=== PATIENT | female | born 1965 | race African-American/Black ===

== ENCOUNTER 2023-12-06 14:08 | Emergency (ER) | payer MEDICAID, OTHER ==
[~2023-12-06] VITALS: Ht 175.3 cm; Wt 121.9 kg
[2023-12-06 18:00] VITALS: BP 113/65; PULSE 64; RESP 17; O2SAT 99
[2023-12-06] MEDS ORDERED: CEPH250C PO (18:03)
[2023-12-06] MEDS ORDERED: ACET500T58 PO (18:03)
[2023-12-06 18:09] VITALS: TEMP 97.7
[2023-12-06] MEDS: ACETAMINOPHEN 500 MG TAB PO ONE (18:09)
[2023-12-06] MEDS: TETANUS-DIPTH-ACEL PERTUSSIS 0.5ML SYR Tdap IM ONE (18:10)
== END 2023-12-06 18:20 | disposition home or self-care (01) ==
LOC: ER 14:08 → EDBD 14:08 → ER 18:19
DX: S51.832A Puncture wound without foreign body of left forearm, initial encounter (principal); I48.91 Unspecified atrial fibrillation; W23.0XXA Caught, crushed, jammed, or pinched between moving objects, initial encounter; Y93.89 Activity, other specified; Y92.89 Other specified places as the place of occurrence of the external cause; Y99.8 Other external cause status
CPT/HCPCS: 90471; 90715

== ENCOUNTER 2024-04-17 09:26 | Emergency (ER) | payer MEDICAID ==
[~2024-04-17] VITALS: Ht 175.3 cm; Wt 114.0 kg
[~2024-04-17 09:26] MED LIST: ACET500T58 PO; CEPH250C PO
[2024-04-17 09:52] VITALS: BP 113/66; PULSE 69; RESP 16; TEMP 97.8; O2SAT 100
[2024-04-17] MEDS: SUMAtriptan SUCCINATE 6 MG/0.5 ML VL SC ONE (10:30)
[2024-04-17] MEDS ORDERED: SUMA50TA2 PO (11:07)
[2024-04-17] MEDS ORDERED: ZOFR4T PO (11:07)
== END 2024-04-17 11:14 | disposition home or self-care (01) ==
LOC: ER 09:29
DX: G43.009 Migraine without aura, not intractable, without status migrainosus (principal); I48.91 Unspecified atrial fibrillation
CPT/HCPCS: 70450; 96372; 99285; J3030

== ENCOUNTER 2024-10-04 23:33 | Inpatient (IN) | payer MEDICAID ==
[~2024-10-04] VITALS: Ht 175.3 cm; Wt 119.4 kg
[~2024-10-04 23:33] MED LIST changes: +SUMA50TA2 PO; +ZOFR4T PO
--- NOTE | 2024-10-04 23:55 | ED.PDOC ---
History of Present Illness Time Seen by MD: 23:35 Primary Care Provider: EMRE Allergies: Coded Allergies: Iodine (Verified Allergy, Unknown, 04/17/24) Sulfa Antibiotics (Verified Allergy, Unknown, 04/17/24) Home Meds Active Scripts Ondansetron Odt 4MG Tab (ZOFRAN PO) 4 Mg Tb, 4 MG PO BID, #14 TAB ODT TAB-DISSOLVE IN MOUTH, THEN SWALLOW Prov:ALEX STEELE 04/17/24 Sumatriptan Succinate (Imitrex) 50 Mg Tab, 1 TAB PO BID, #20 TAB Prov:ALEX STEELE PA 04/17/24 Acetaminophen (Acetaminophen) 500 Mg Tab, 500 MG PO Q4HP PRN, #20 TAB Prov:ADRIANA MARES PAC 12/06/23 Cephalexin (KEFLEX CAPSULE) 250 Mg Cp, 1 CAP PO QID for 5 Days, #20 CAP Prov:ADRIANA MARES PAC 12/06/23 Past Medical History PAST MEDICAL HISTORY: AFIB Surgical History: Denies all surgeries GROUP FITNESS MANAGER History: No Pertinent GROUP FITNESS MANAGER History Family History Family History: Reviewed,noncontributory to illness, No family hx of Cancer, No family hx of DM, No family hx of Heart libia, No family hx of HTN, No family hx ofKidney libia, No family hx of Liver libia, No family hx of Lung ilbia, No family hx of Stroke Social History Smoker: Non-Smoker Alcohol: Denies ETOH Use Drugs: Denies Drug Use Lives In: Home X-Ray, Labs, Meds, VS Vital Signs Date Time Temp Pulse Resp B/P (MAP) Pulse Ox O2 Delivery O2 Flow Rate FiO2 10/05/24 00:43 69 10/05/24 00:07 98.4 74 16 115/67 (83) 98 10/05/24 00:03 71 10 99 Room Air* 0 21 10/05/24 00:03 71 10 109/57 (74) 99 10/05/24 00:00 82 10/04/24 23:36 77 Lab Test 10/05/24 01:12 10/05/24 00:17 Range/Units Troponin I High Sensitivity Pending < 3 L </=34 ng/L White Blood Count 8.7 4.4-10.8 10^3/uL Red Blood Count 4.16 4.0-5.20 10^6/uL Hemoglobin 12.8 12.2-16.2 g/dL Hematocrit 39.5 36.0-46.0 % Mean Corpuscular Volume 95.0 80.0-100.0 fL Mean Corpuscular Hemoglobin 30.9 28.0-32.0 pg Mean Corpuscular Hemoglobin Concent 32.5 32.0-36.0 g/dL Red Cell Distribution Width 13.7 11.8-14.3 % Platelet Count 182 140-450 10^3/uL Mean Platelet Volume 9.3 6.9-10.8 fL Neutrophils (%) (Auto) 44.5 37.0-80.0 % Lymphocytes (%) (Auto) 45.9 10.0-50.0 % Monocytes (%) (Auto) 6.6 0.0-12.0 % Eosinophils (%) (Auto) 2.6 0.0-7.0 % Basophils (%) (Auto) 0.4 0.0-2.0 % Neutrophils # (Auto) 3.9 1.6-8.6 10 ^3/uL Lymphocytes # (Auto) 4.0 0.4-5.4 10 ^3/uL Monocytes # (Auto) 0.6 0-1.3 10 ^3/uL Eosinophils # (Auto) 0.2 0-0.8 10 ^3/uL Basophils # (Auto) 0 0-0.2 10 ^3/uL Nucleated Red Blood Cells 0.3 % Sodium Level 138 136-145 mmol/L Potassium Level 4.2 3.5-5.1 mmol/L Chloride Level 106 98-107 mmol/L Carbon Dioxide Level 25 20-31 mmol/L Anion Gap 7 5-15 Blood Urea Nitrogen 6 L 9-23 mg/dL Creatinine 1.11 H 0.550-1.02 mg/dL Glomerular Filtration Rate Calc 57 >90 mL/min BUN/Creatinine Ratio 5.4 L 10.0-20.0 Serum Glucose 85 74-106 mg/dL Calcium Level 9.8 8.7-10.4 mg/dL Magnesium Level 2.0 1.6-2.6 mg/dL Total Bilirubin 0.5 0.2-1.0 mg/dL Aspartate Amino Transferase (AST) 21 13-40 U/L Alanine Aminotransferase (ALT) 16 7-40 U/L Alkaline Phosphatase 74 46-116 U/L B-Type Natriuretic Peptide 12.92 0-100 pg/mL Total Protein 7.3 5.7-8.2 g/dL Albumin 3.9 3.2-4.8 g/dL BRAD BARTHOLOMEW MD Oct 04, 2024 23:55
[2024-10-05] VITALS (7 sets, daily range): BP systolic 95–105; BP diastolic 51–60; PULSE 61–71; RESP 10–20; TEMP 97.5–98.1; O2SAT 98–100
--- NOTE | 2024-10-05 00:29 | DVH ---
CHEST RADIOGRAPH Indication: cp Technique: Single frontal view of the chest was obtained Comparison: None FINDINGS: Lines and Tubes: None Lungs: Clear Pleura: No effusion. No pneumothorax. Cardiomediastinal contours: Unremarkable Bones: Unremarkable IMPRESSION: 1. Clear lungs.
--- NOTE | 2024-10-05 00:38 | DVH ---
CT HEAD WITHOUT CONTRAST INDICATION: Severe headache, change in quality, on Xarelto EXAM DATE: 10/05/2024 12:02 AM COMPARISON: CT HEAD WITHOUT CONTRAST on DOS: 04/17/24 RADIATION DOSE: CTDIvol: 57 mGy, DLP: 1018 mGy*cm PROCEDURE: CT scans of the head were obtained from the vertex to the skull base. Sagittal and coronal reconstructions were provided. All CT scans at this medical facility are performed using dose modulation techniques as appropriate t o a performed exam including the following: Automated exposure control was utilized; adjustment of th e MA and/or KV according to patient size; and use of iterative reconstruction technique. FINDINGS: There is sulcal and ventricular prominence. The brainshows normal morphology and fabian-whi te matter differentiation, without intracranial hemorrhage, extra-axial fluid collection, mass effect or acute large vessel infarct. The ventricles are normal in size. The basal cisterns are patent. The skull and visible facial bones are intact. The paranasal sinuses, mastoid air cells and middle ear c avities are well-aerated. The soft tissues of the scalp are unremarkable. IMPRESSION: No acute intracranial abnormality.
[2024-10-05 00:50] LABS: Basophils # (auto) 0 10 ^3/uL (0-0.2); Basophils % (auto) 0.4 % (0.0-2.0); Eosinophils # (auto) 0.2 10 ^3/uL (0-0.8); Eosinophils % (auto) 2.6 % (0.0-7.0); Hematocrit 39.5 % (36.0-46.0); Hemoglobin 12.8 g/dL (12.2-16.2); Lymphocytes % (auto) 45.9 % (10.0-50.0); Mean Corpuscular Hemoglobin 30.9 pg (28.0-32.0); Mean Corpuscular Hgb Conc. 32.5 g/dL (32.0-36.0); Monocytes # (auto) 0.6 10 ^3/uL (0-1.3); Monocytes % (auto) 6.6 % (0.0-12.0); Neutrophils # (auto) 3.9 10 ^3/uL (1.6-8.6); Neutrophils % (auto) 44.5 % (37.0-80.0); Nucleated Red Blood Cells % 0.3 %; Platelet Count (auto) 182 10^3/uL (140-450); Red Blood Cells 4.16 10^6/uL (4.0-5.20); Red Cell Distribution Width 13.7 % (11.8-14.3); White Blood Cell 8.7 10^3/uL (4.4-10.8)
[2024-10-05] MEDS: ACETAMINOPHEN 500 MG TAB or CAP PO ONE (01:13)
[2024-10-05] MEDS: ONDANSETRON HCL 4 MG/2 ML VIAL ONE (01:18)
[2024-10-05 01:32] LABS: Alanine Aminotransferase 16 U/L (7-40); Albumin 3.9 g/dL (3.2-4.8); Alkaline Phosphatase 74 U/L (46-116); Anion Gap 7 (5-15); Aspartate Aminotransferase 21 U/L (13-40); BUN/Creatinine Ratio 5.4 (10.0-20.0); Calcium 9.8 mg/dL (8.7-10.4); Carbon Dioxide 25 mmol/L (20-31); Chloride 106 mmol/L (98-107); Glucose 85 mg/dL (74-106); Potassium 4.2 mmol/L (3.5-5.1); Sodium 138 mmol/L (136-145)
[2024-10-05 01:33] LABS: Bilirubin, Total 0.5 mg/dL (0.2-1.0); Blood Urea Nitrogen 6 mg/dL (9-23); Total Protein 7.3 g/dL (5.7-8.2)
--- NOTE | 2024-10-05 01:49 | ED.PDOC ---
History of Present Illness HPI Comments 59-year-old female with past medical history of CHF, hypertension, prediabetes, migraines, DVT, lupus presents to the emergency department with severe, 9/10 chest pain unless side of her chest that started approximately 6 hours prior to arrival while she was sitting and watching TV. Patient states the pain does not radiate, feels like her heart is popping out of her chest, burning, stabbing. She denies any similar symptoms in the past. She is allergic to aspirin. She does take Xarelto for DVT. She states she has been compliant with her medications, has not missed any doses. She reports associated shortness of breath, nausea, headache, palpitations. No cough, vomiting, diaphoresis or syncope No recent illness or viral-like symptoms. She states she was feeling well prior to 6 hours ago. She does have a headache which is occipital and not typical for her usual headaches. No head injury. Per EMS patient's blood sugar was 83 on arrival, she was in sinus rhythm. Chief Complaint: Chest Pain Time Seen by MD: 23:35 Primary Care Provider: EMRE Allergies: Coded Allergies: Iodine (Verified Allergy, Unknown, 04/17/24) Sulfa Antibiotics (Verified Allergy, Unknown, 04/17/24) Home Meds Active Scripts Ondansetron Odt 4MG Tab (ZOFRAN PO) 4 Mg Tb, 4 MG PO BID, #14 TAB ODT TAB-DISSOLVE IN MOUTH, THEN SWALLOW Prov:ALEX STEELE 04/17/24 Sumatriptan Succinate (Imitrex) 50 Mg Tab, 1 TAB PO BID, #20 TAB Prov:ALEX STEELE 04/17/24 Acetaminophen (Acetaminophen) 500 Mg Tab, 500 MG PO Q4HP PRN, #20 TAB Prov:ADRIANA MARES PAC 12/06/23 Cephalexin (KEFLEX CAPSULE) 250 Mg Cp, 1 CAP PO QID for 5 Days, #20 CAP Prov:ADRIANA MARES PAC 12/06/23 Mode of Arrival: EMS Review of Systems: As stated in HPI Vital Signs Vital Signs Date Time Temp Pulse Resp B/P (MAP) Pulse Ox O2 Delivery O2 Flow Rate FiO2 10/05/24 03:15 72 18 117/62 10/05/24 00:07 98.4 98 10/05/24 00:03 Room Air* 0 21 Physical Exam Blood pressure LUE: 117/62 RUE: 112/59 General: Awake, alert and oriented. No acute distress. Skin: Skin in warm, dry and intact. Appropriate color for ethnicity. Nailbeds with no cyanosis. HEENT: The head is normocephalic and atraumatic. Conjunctivae are clear without exudates or hemorrhage. Sclera is non-icteric. EOM are intact. No signs of nystagmus. Eyelids are normal in appearance without swelling or lesions. Oral mucosa is pink and moist Neck: The neck is supple with normal range of motion. No JVD. Cardiac: Heart rate and rhythm are normal. No murmurs, gallops, or rubs are auscultated. Bilateral radial pulses strong and equal. Left chest wall tender to palpation. Respiratory: No signs of respiratory distress. Lung sounds are clear in all lobes bilaterally without rales, ronchi, or wheezes. Abdominal: Abdomen is soft, non-tender without distention. Bowel sounds are present and normoactive in all four quadrants. Extremities: Upper and lower extremities are atraumatic in appearance without deformity or edema. Neurological: The patient is awake, alert and oriented to person, place, and time with normal speech. Speech is clear. There is no facial asymmetry. Psychiatric: Appropriate mood and affect. Good judgement and insight. No visual or auditory hallucinations. Past Medical History PAST MEDICAL HISTORY: AFIB Surgical History: Denies all surgeries HAND ROUNDER History: No Pertinent HAND ROUNDER History Family History Family History: Reviewed,noncontributory to illness, No family hx of Cancer, No family hx of DM, No family hx of Heart libia, No family hx of HTN, No family hx ofKidney libia, No family hx of Liver libia, No family hx of Lung libia, No family hx of Stroke Social History Smoker: Non-Smoker Alcohol: Denies ETOH Use Drugs: Denies Drug Use Lives In: Home Was a procedure done? Was a procedure done?: No EKG EKG : Comments Rate 77, sinus rhythm, QTC 462, QRS axis 95. No STEMI. Differential Dx Considerations may include: Differential diagnoses considered include acute ischemic coronary syndrome, aortic dissection, cardiac tamponade, mediastinitis, pulmonary embolus, pneumoth orax, tension pneumothorax, esophageal rupture, coronary artery vasospasm, myocarditis, pericarditis, pneumonia, pulmonary edema, esophageal tear, pancreatitis, aortic stenosis, dilated cardiomyopathy, hypertrophic cardiomyopathy, mitral valve prolapse, malignancy, pleuritis, pneumomediastinum, primary pulmonary hypertension, cholecystitis, esophageal spasm, esophagus, gastritis, GERD, peptic ulcer disease, costochondritis, fibromyalgia, rib fracture, herpes zoster, radicular syndromes, thoracic outlet syndrome, somatization. X-Ray, Labs, Meds, VS Vital Signs Date Time Temp Pulse Resp B/P (MAP) Pulse Ox O2 Delivery O2 Flow Rate FiO2 10/05/24 03:15 72 18 117/62 10/05/24 02:29 64 10/05/24 00:43 69 10/05/24 00:07 98.4 74 16 115/67 (83) 98 10/05/24 00:03 71 10 99 Room Air* 0 21 10/05/24 00:03 71 10 109/57 (74) 99 10/05/24 00:00 82 10/04/24 23:36 77 Lab Test 10/05/24 01:12 10/05/24 00:17 Range/Units Troponin I High Sensitivity < 3 L < 3 L </=34 ng/L White Blood Count 8.7 4.4-10.8 10^3/uL Red Blood Count 4.16 4.0-5.20 10^6/uL Hemoglobin 12.8 12.2-16.2 g/dL Hematocrit 39.5 36.0-46.0 % Mean Corpuscular Volume 95.0 80.0-100.0 fL Mean Corpuscular Hemoglobin 30.9 28.0-32.0 pg Mean Corpuscular Hemoglobin Concent 32.5 32.0-36.0 g/dL Red Cell Distribution Width 13.7 11.8-14.3 % Platelet Count 182 140-450 10^3/uL Mean Platelet Volume 9.3 6.9-10.8 fL Neutrophils (%) (Auto) 44.5 37.0-80.0 % Lymphocytes (%) (Auto) 45.9 10.0-50.0 % Monocytes (%) (Auto) 6.6 0.0-12.0 % Eosinophils (%) (Auto) 2.6 0.0-7.0 % Basophils (%) (Auto) 0.4 0.0-2.0 % Neutrophils # (Auto) 3.9 1.6-8.6 10 ^3/uL Lymphocytes # (Auto) 4.0 0.4-5.4 10 ^3/uL Monocytes # (Auto) 0.6 0-1.3 10 ^3/uL Eosinophils # (Auto) 0.2 0-0.8 10 ^3/uL Basophils # (Auto) 0 0-0.2 10 ^3/uL Nucleated Red Blood Cells 0.3 % Sodium Level 138 136-145 mmol/L Potassium Level 4.2 3.5-5.1 mmol/L Chloride Level 106 98-107 mmol/L Carbon Dioxide Level 25 20-31 mmol/L Anion Gap 7 5-15 Blood Urea Nitrogen 6 L 9-23 mg/dL Creatinine 1.11 H 0.550-1.02 mg/dL Glomerular Filtration Rate Calc 57 >90 mL/min BUN/Creatinine Ratio 5.4 L 10.0-20.0 Serum Glucose 85 74-106 mg/dL Calcium Level 9.8 8.7-10.4 mg/dL Magnesium Level 2.0 1.6-2.6 mg/dL Total Bilirubin 0.5 0.2-1.0 mg/dL Aspartate Amino Transferase (AST) 21 13-40 U/L Alanine Aminotransferase (ALT) 16 7-40 U/L Alkaline Phosphatase 74 46-116 U/L B-Type Natriuretic Peptide 12.92 0-100 pg/mL Total Protein 7.3 5.7-8.2 g/dL Albumin 3.9 3.2-4.8 g/dL Current Medications Medications (Trade) Dose Ordered Sig/Anastasia Route Start Time Stop Time Status Last Admin Morphine Sulfate 2 mg ONCE ONCE IV 10/05/24 00:00 10/05/24 00:04 DC 10/05/24 03:15 Ondansetron HCl (Zofran) 4 mg ONCE ONCE IV 10/05/24 01:15 10/05/24 01:16 DC 10/05/24 02:39 Al Hydrox/Mg Hydrox/Simethicone (Maalox Plus) 30 ml ONCE ONCE PO 10/05/24 02:30 10/05/24 02:31 DC 10/05/24 02:38 Lidocaine HCl (Xylocaine 2% Viscous) 10 ml ONCE ONCE PO 10/05/24 02:30 10/05/24 02:31 DC 10/05/24 02:39 CHEST RADIOGRAPH Indication: cp Technique: Single frontal view of the chest was obtained Comparison: None FINDINGS: Lines and Tubes: None Lungs: Clear Pleura: No effusion. No pneumothorax. Cardiomediastinal contours: Unremarkable Bones: Unremarkable IMPRESSION: 1. Clear lungs. ATED BY: RAMIREZ JACKSON DO DICTATED DATE/TIME: 10/05/247 CT HEAD WITHOUT CONTRAST INDICATION: Severe headache, change in quality, on Xarelto EXAM DATE: 10/05/2024 12:02 AM COMPARISON: CT HEAD WITHOUT CONTRAST on DOS: 04/17/24 RADIATION DOSE: CTDIvol: 57 mGy, DLP: 1018 mGy*cm PROCEDURE: CT scans of the head were obtained from the vertex to the skull base. Sagittal and coronal reconstructions were provided. All CT scans at this medical facility are performed using dose modulation techniques as appropriate to a performed exam including the following: Automated exposure control was utilized; adjustment of the MA and/or KV according to patient size; and use of iterative reconstruction technique. FINDINGS: There is sulcal and ventricular prominence. The brainshows normal morphology and fabian-white matter differentiation, without intracranial hemorrhage, extra-axial fluid collection, mass effect or acute large vessel infarct. The ventricles are normal in size. The basal cisterns are patent. The skull and visible facial bones are intact. The paranasal sinuses, mastoid air cells and middle ear cavities are well-aerated. The soft tissues of the scalp are unremarkable. IMPRESSION: No acute intracranial abnormality. ATED BY: RAMIREZ JACKSON DO DICTATED DATE/TIME: 10/05/2434 SIGNED BY: RAMIREZ JACKSON DO SIGNED DATE/TIME: 10/05/2434 Time of 1ST Reevaluation: 01:49 Reevaluation 1ST: Unchanged Time of 2ND Reevaluation: 03:10 Reevaluation 2ND: Unchanged Patient Education/Counseling: Other Family Education/Counseling: Other Departure 1 Departure Time of Disposition: 03:01 Impression: Primary Impression: Chest pain Additional Impressions: Hypertension Hyperlipidemia Lupus Congestive heart failure Intractable pain DVT (deep venous thrombosis) Disposition: 09 ADMITTED INPATIENT Condition: Stable Comments 59-year-old female with history of CHF, hypertension, prediabetes, lupus, DVT presents to the emergency department with 8/10 left-sided chest pain. On Xarelto for DVT, has been compliant. EKG, troponin negative for ischemia. Chest x-ray negative for acute disease or pulmonary edema. Radial pulses equal bilaterally, blood pressure is equal in bilateral upper extremities. After analgesics. Patient continues to does endorse severe 8/10 pressure-like chest pain now radiating to her left arm. Patient admitted for further treatment, evaluation and monitoring. Critical Care Note Critical Care Time?: No Stability Stability form required: BRAD Mcintosh MD Oct 05, 2024 01:49
[2024-10-05] MEDS: MAALOX PLUS or MAALOX 30 ML PO ONE (02:38)
[2024-10-05] MEDS: LIDOCAINE VISCOUS 2% 15ML UD PO ONE (02:39)
[2024-10-05] MEDS: ONDANSETRON HCL 4 MG/2 ML VIAL IV ONE (02:39)
--- NOTE | 2024-10-05 02:39 | ECG ---
[facility] Test Date: 2024-10-05 Test Time: 00:43:50 Pat Name: OLGA CAVANAUGH Department: ed Room: Gender: F Flight Manager: kerrie : 1965 Requested By: BRAD BARTHOLOMEW Order Number: [id number] Reading MD: Measurements Intervals [place] Rate: 69 P: 32 LA: 138 QRS: -10 QRSD: 113 T: 32 QT: 412 QTc: 442 Interpretive Statements Sinus rhythm Borderline intraventricular conduction delay Low voltage, precordial leads RSR' in V1 or V2, probably normal variant Please click the below link to view image of tracing.
--- NOTE | 2024-10-05 02:39 | ECG ---
[facility] [place] Test Date: 2024-10-05 Test Time: 02:29:54 Pat Name: OLGA CAVANAUGH Department: ed Room: Gender: F Senior Corporate Strategy Manager: kerrie : 1965 Requested By: BRAD BARTHOLOMEW Order Number: [id number] Reading MD: Measurements Intervals [place] Rate: 64 P: 62 MA: 145 QRS: -13 QRSD: 120 T: 34 QT: 426 QTc: 440 Interpretive Statements Sinus rhythm Nonspecific intraventricular conduction delay Please click the below link to view image of tracing.
[2024-10-05] MEDS: MORPHINE SULFATE INJ 2 MG/ml SYRG IV ONE (02:43)
--- NOTE | 2024-10-05 02:44 | ECG ---
[facility] Test Date: 2024-10-04 Test Time: 23:36:58 Pat Name: OLGA CAVANAUGH Department: ed Room: Gender: F Handkerchief Sample Clerk: kerrie : 1965 Requested By: BRAD BARTHOLOMEW Order Number: [id number] Reading MD: Measurements Intervals [place] Rate: 77 P: -11 CA: 139 QRS: 95 QRSD: 125 T: 30 QT: 408 QTc: 462 Interpretive Statements Sinus rhythm Nonspecific intraventricular conduction delay Artifact in lead(s) I,II,aVR,aVL,aVF Please click the below link to view image of tracing.
--- NOTE | 2024-10-05 09:09 | DVHINCON2 ---
Date of service: Oct 05, 2024 History of Present Illness 59-year-old female with past medical history of CHF, hypertension, prediabetes, migraines, DVT, lupus presents to the emergency department with severe, 9/10 chest pain unless side of her chest that started approximately 6 hours prior to arrival while she was sitting and watching TV. Patient states the pain does not radiate, feels like her heart is popping out of her chest, burning, stabbing. She denies any similar symptoms in the past. She is allergic to aspirin. She does take Xarelto for DVT. She states she has been compliant with her medications, has not missed any doses. She reports associated shortness of breath, nausea, headache, palpitations. No cough, vomiting, diaphoresis or syncope No recent illness or viral-like symptoms. She states she was feeling well prior to 6 hours ago. She does have a headache which is occipital and not typical for her usual headaches. No head injury. Per EMS patient's blood sugar was 83 on arrival, she was in sinus rhythm. Chief Complaint: Chest Pain Time Seen by MD: 23:35 Primary Care Provider: EMRE Allergies: Coded Allergies: Iodine (Verified Allergy, Unknown, 04/17/24) Sulfa Antibiotics (Verified Allergy, Unknown, 04/17/24) Home Meds Past Medical History reviewed Allergies: Coded Allergies: Iodine (Verified Allergy, Unknown, 04/17/24) Sulfa Antibiotics (Verified Allergy, Unknown, 04/17/24) Home Meds Active Scripts Ondansetron Odt 4MG Tab (ZOFRAN PO) 4 Mg Tb, 4 MG PO BID, #14 TAB ODT TAB-DISSOLVE IN MOUTH, THEN SWALLOW Prov:ALEX STEELE 04/17/24 Sumatriptan Succinate (Imitrex) 50 Mg Tab, 1 TAB PO BID, #20 TAB Prov:ALEX STEELE 04/17/24 Acetaminophen (Acetaminophen) 500 Mg Tab, 500 MG PO Q4HP PRN, #20 TAB Prov:ADRIANA MARES PAC 12/06/23 Cephalexin (KEFLEX CAPSULE) 250 Mg Cp, 1 CAP PO QID for 5 Days, #20 CAP Prov:ADRIANA MARES PAC 12/06/23 Review of Systems 10 pt ros otherwise negative Vital Signs Vital Signs Date Time Temp Pulse Resp B/P (MAP) Pulse Ox O2 Delivery O2 Flow Rate FiO2 12/15/24 08:06 60 10/05/24 07:35 15 98 Nasal Cannula* 2 28 10/05/24 07:35 128/80 (96) 10/05/24 07:25 97.9 97.9 Physical Exam nad s1 s2 rrr ctab soft nt/nd no edema +chest pain on palpation of chest wall Labs/Diagnostic Data Labs Test 10/05/24 01:12 10/05/24 00:17 Range/Units Troponin I High Sensitivity < 3 L </=34 ng/L White Blood Count 8.7 4.4-10.8 10^3/uL Red Blood Count 4.16 4.0-5.20 10^6/uL Hemoglobin 12.8 12.2-16.2 g/dL Hematocrit 39.5 36.0-46.0 % Mean Corpuscular Volume 95.0 80.0-100.0 fL Mean Corpuscular Hemoglobin 30.9 28.0-32.0 pg Mean Corpuscular Hemoglobin Concent 32.5 32.0-36.0 g/dL Red Cell Distribution Width 13.7 11.8-14.3 % Platelet Count 182 140-450 10^3/uL Mean Platelet Volume 9.3 6.9-10.8 fL Neutrophils (%) (Auto) 44.5 37.0-80.0 % Lymphocytes (%) (Auto) 45.9 10.0-50.0 % Monocytes (%) (Auto) 6.6 0.0-12.0 % Eosinophils (%) (Auto) 2.6 0.0-7.0 % Basophils (%) (Auto) 0.4 0.0-2.0 % Neutrophils # (Auto) 3.9 1.6-8.6 10 ^3/uL Lymphocytes # (Auto) 4.0 0.4-5.4 10 ^3/uL Monocytes # (Auto) 0.6 0-1.3 10 ^3/uL Eosinophils # (Auto) 0.2 0-0.8 10 ^3/uL Basophils # (Auto) 0 0-0.2 10 ^3/uL Nucleated Red Blood Cells 0.3 % Sodium Level 138 136-145 mmol/L Potassium Level 4.2 3.5-5.1 mmol/L Chloride Level 106 98-107 mmol/L Carbon Dioxide Level 25 20-31 mmol/L Anion Gap 7 5-15 Blood Urea Nitrogen 6 L 9-23 mg/dL Creatinine 1.11 H 0.550-1.02 mg/dL Glomerular Filtration Rate Calc 57 >90 mL/min BUN/Creatinine Ratio 5.4 L 10.0-20.0 Serum Glucose 85 74-106 mg/dL Calcium Level 9.8 8.7-10.4 mg/dL Magnesium Level 2.0 1.6-2.6 mg/dL Total Bilirubin 0.5 0.2-1.0 mg/dL Aspartate Amino Transferase (AST) 21 13-40 U/L Alanine Aminotransferase (ALT) 16 7-40 U/L Alkaline Phosphatase 74 46-116 U/L B-Type Natriuretic Peptide 12.92 0-100 pg/mL Total Protein 7.3 5.7-8.2 g/dL Albumin 3.9 3.2-4.8 g/dL Assessment r/o ACS hx of DVT hx of lupus obesity morbid htn hl Plan/Recommendation ACS ruled out chest pain hurts when we touch her chest wall, ?lupus flare cont doac for hx of vte, defer eval to hospitalist group regarding this normal bnp-no evidence of HF fu dr martinez after DC pt has other MRNs as well, check echo if none in past Plan discussed with: Patient PEGGY WALKER MD Oct 05, 2024 09:09
[2024-10-05] MEDS ORDERED: ONDANSETRON HCL 4 MG/2 ML VIAL IV PRN (09:30)
[2024-10-05] MEDS ORDERED: HYDROcodone-ACET 5/325MG TAB PO PRN (09:30)
[2024-10-05] MEDS ORDERED: MORPHINE SULFATE INJ 2 MG/ml SYRG IV PRN ×3 (09:30→09:45)
[2024-10-05] MEDS ORDERED: NITROGLYCERIN 0.4 MG SL TAB SL PRN ×2 (09:30→09:45)
[2024-10-05] MEDS ORDERED: ACETAMINOPHEN 325 MG TAB PO PRN (09:30)
--- NOTE | 2024-10-05 09:31 | DVHHP2 ---
History of Present Illness Reason for Visit: Chest pain History of Present Illness This 59-year-old female presents in the ED with a chief complaint of chest pain. The patient reports sharp, nonradiating, worse on exertion chest pain started last night as she was watching TV. The patient currently denies dizziness, syncope, shortness of breath, difficulty in breathing, palpitations, orthopnea or PND.. The patient reports she is under a Autom[employer]in[employer] Dr. Yeager. Reported last nuclear test 3-4 years ago with normal findings. Denies tobacco, illicit drug, or ETOH use. Past medical history of CHF, hypertension, pre diabetes, migraines, bilateral lower extremity DVT on Xarelto, and lupus. Past Medical History As stated in HPI Past Surgical History Denies Family History Reviewed, non-contributory to the management of this case. Past Social History The patient lives at home, denies smoking, alcohol or illicit drugs abuse. Review of Systems Constitutional: Yes: Malaise; No: Fever, Chills, Sweats, Weakness, Other Eyes: No: Pain, Vision change, Conjunctivae inflammation, Eyelid inflammation, Other, Redness ENT: No: Ear pain, Ear discharge, Nose pain, Nose discharge, Nose congestion, Mouth pain, Mouth swelling, Throat pain, Throat swelling, Other Respiratory: No: Cough, Dry, Shortness of breath, SOB with excertion, Wheezing, Hemoptysis, Pleuritic Pain, Sputum, Wheezing, Other Cardiovascular: Chest Pain; No: Palpitations, Orthopnea, Paroxysmal Noc. Dyspnea, Edema, Lt Headedness, Other Gastrointestinal: No: Nausea, Vomiting, Abdominal Pain, Diarrhea, Constipation, Melena, Hematochezia, Other Genitourinary: No Dysuria, No Frequency, No Incontinence, No Hematuria, No Retention, No Other Musculoskeletal: No: other, neck pain, shoulder pain, arm pain, back pain, hand pain, leg pain, foot pain Skin: No: Rash, Lesions, Jaundice, Bruising, Other Neurological: No: Weakness, Numbness, Incoordination, Change in speech, Confusion, Seizures, Other Allergies: Coded Allergies: Iodine (Verified Allergy, Unknown, 04/17/24) Sulfa Antibiotics (Verified Allergy, Unknown, 04/17/24) Exam Vital Signs Vital Signs Date Time Temp Pulse Resp B/P (MAP) Pulse Ox O2 Delivery O2 Flow Rate FiO2 10/05/24 08:06 60 10/05/24 07:35 15 98 Nasal Cannula* 2 28 10/05/24 07:35 128/80 (96) 10/05/24 07:25 97.9 97.9 General Appearance: Alert, Oriented X3, Cooperative, mild distress HEENT: Atraumatic, PERRLA, EOMI, Mucous membr. moist/pink Respiratory: Clear to auscultation, Normal air movement Cardiovascular: Regular rate, Normal S1, Normal S2, Other (Bilateral lower extremity + 1 pitting edema) Abdominal: Normal bowel sounds, Soft, No tenderness Extremities: No clubbing, No cyanosis, Normal pulses, No tenderness/swelling Skin: No rashes, No breakdown, No significant lesion Neuro: Normal gait, Normal speech, Strength at 5/5 X4 ext, Normal tone Psych/Mental Status: Mental status NL Labs/Xrays Labs Test 10/05/24 01:12 10/05/24 00:17 Range/Units Troponin I High Sensitivity < 3 L </=34 ng/L White Blood Count 8.7 4.4-10.8 10^3/uL Red Blood Count 4.16 4.0-5.20 10^6/uL Hemoglobin 12.8 12.2-16.2 g/dL Hematocrit 39.5 36.0-46.0 % Mean Corpuscular Volume 95.0 80.0-100.0 fL Mean Corpuscular Hemoglobin 30.9 28.0-32.0 pg Mean Corpuscular Hemoglobin Concent 32.5 32.0-36.0 g/dL Red Cell Distribution Width 13.7 11.8-14.3 % Platelet Count 182 140-450 10^3/uL Mean Platelet Volume 9.3 6.9-10.8 fL Neutrophils (%) (Auto) 44.5 37.0-80.0 % Lymphocytes (%) (Auto) 45.9 10.0-50.0 % Monocytes (%) (Auto) 6.6 0.0-12.0 % Eosinophils (%) (Auto) 2.6 0.0-7.0 % Basophils (%) (Auto) 0.4 0.0-2.0 % Neutrophils # (Auto) 3.9 1.6-8.6 10 ^3/uL Lymphocytes # (Auto) 4.0 0.4-5.4 10 ^3/uL Monocytes # (Auto) 0.6 0-1.3 10 ^3/uL Eosinophils # (Auto) 0.2 0-0.8 10 ^3/uL Basophils # (Auto) 0 0-0.2 10 ^3/uL Nucleated Red Blood Cells 0.3 % Sodium Level 138 136-145 mmol/L Potassium Level 4.2 3.5-5.1 mmol/L Chloride Level 106 98-107 mmol/L Carbon Dioxide Level 25 20-31 mmol/L Anion Gap 7 5-15 Blood Urea Nitrogen 6 L 9-23 mg/dL Creatinine 1.11 H 0.550-1.02 mg/dL Glomerular Filtration Rate Calc 57 >90 mL/min BUN/Creatinine Ratio 5.4 L 10.0-20.0 Serum Glucose 85 74-106 mg/dL Calcium Level 9.8 8.7-10.4 mg/dL Magnesium Level 2.0 1.6-2.6 mg/dL Total Bilirubin 0.5 0.2-1.0 mg/dL Aspartate Amino Transferase (AST) 21 13-40 U/L Alanine Aminotransferase (ALT) 16 7-40 U/L Alkaline Phosphatase 74 46-116 U/L B-Type Natriuretic Peptide 12.92 0-100 pg/mL Total Protein 7.3 5.7-8.2 g/dL Albumin 3.9 3.2-4.8 g/dL PROCEDURE(s): CXR1 - CHEST XRAY 1 VIEW REASON: cp ORDER NUMBER(s): [id number], ACCESSION NUMBER(s): [id number] CHEST RADIOGRAPH Indication: cp Technique: Single frontal view of the chest was obtained Comparison: None FINDINGS: Lines and Tubes: None Lungs: Clear Pleura: No effusion. No pneumothorax. Cardiomediastinal contours: Unremarkable Bones: Unremarkable IMPRESSION: 1. Clear lungs. Assessment/Plan Assessment/Plan # Atypical Chest pain, possible musculoskeletal # Rule out acute coronary syndrome # Hx of Afib--? Paroxysmal, currently sinus rhythm # Hx CHF, normal BNP Admit telemetry Cardiology consult Echocardiogram Monitor on telemetry and 12 lead ECG Continue diuretics Daily wt, accurate intake and output Check ESR, CRP, lipid panel, TSH Colchicine # KELLY on CKD 3A Soft IV fluid--1L Monitor for overload Monitor renal function # Hx of bilateral lower extremity DVT Continue Xarelto Check for DVT # hx of lupus Check ESR, crp # migraines Continue sumatriptan # prediabetes Check A1c # obesity Lifestyle modification counseled with diet regular exercise and weight loss DVT prophylaxis Medical plan discussed with patient and RN Plan discussed with: Patient My Orders Orders - ED OTERO Procedure Category Date Status Time * Cardiology Consult CONS 10/05/24 Transmitted 09:18 Admit ADMIT 10/05/24 Transmitted 09:18 Code Status CODE 10/05/24 Transmitted 09:18 Hydrocodone-Acet PHA 10/05/24 Logged 5/325mg Tab ([place] 09:30 Ondansetron Hcl PHA 10/05/24 Logged (Zofran) 09:30 Fall Risk Precautions [facility] 10/05/[address] 09:18 Complete Blood Count LAB 10/06/24 Verified 04:00 Comprehensive LAB 10/06/24 Verified Metabolic Panel 04:00 Cardiac DIET 10/05/24 Transmitted Diet-2gna,Lofat,Lochol Breakfast Echo 2d Mode Cardiac US 10/05/24 Logged DOP 09:18 Condition: Fair [facility] 10/05/24 Transmitted 09:18 Acetaminophen Tablet PHA 10/05/24 Logged (Tylenol Tablet) 09:30 Morphine Sulfate PHA 10/05/24 Logged Injection 09:30 Nitroglycerin PHA 10/05/24 Logged Sublingual (Ntrostat 09:30 Morphine Sulfate PHA 10/05/24 Logged Injection 09:30 Stat Ekg For Chest [facility] 10/05/24 Transmitted Pain 09:18 Notify Md Of Changes [facility] 10/05/24 Transmitted From Base 09:18 Senior Gis Analyst For [facility] 10/05/24 Transmitted 24 Hours 09:18 Emergency Dysrhythmia [facility] 10/05/24 Transmitted Protocol 09:18 Rhythm Strips Once [facility] 10/05/24 Transmitted Every Shift 09:18 Oxygen By Nasal RT 10/05/24 Transmitted Cannula 09:18 Erythrocyte LAB 10/05/24 Transmitted Sedimentation Rate 09:18 Date of Service: Oct 05, 2024 Billing Provider: ED OTERO Common Visit Codes: [id number] INP/OBS CARE (HIGH) ED OTERO Oct 05, 2024 09:31
[2024-10-05] MEDS ORDERED: FURO40TA4 PO (10:14)
[2024-10-05] MEDS ORDERED: MONT-8 PO (10:14)
[2024-10-05] MEDS ORDERED: RIV20T PO (10:14)
[2024-10-05] MEDS: MORPHINE SULFATE INJ 2 MG/ml SYRG IV PRN (10:19)
[2024-10-05] MEDS: ONDANSETRON HCL 4 MG/2 ML VIAL IV PRN (10:20)
[2024-10-05 10:44] LABS: Triglycerides 75 mg/dL (< 150)
[2024-10-05 10:45] LABS: LDL Cholesterol 89 mg/dL (< 100)
[2024-10-05 10:46] LABS: Cholesterol 159 mg/dL (< 200); HDL Cholesterol 51 mg/dL (40-59)
[2024-10-05 10:56] LABS: Urine Bacteria None Seen /hpf (None Seen)
[2024-10-05 11:03] LABS: Urine Blood Negative /uL (Negative); Urine Clarity Clear (Clear); Urine Color Yellow (Yellow); Urine Mucus FEW (None Seen); Urine Protein, UAD Negative (Negative); Urine Specific Gravity 1.022 (1.001-1.035); Urine Urobilinogen Normal (Negative); Urine WBC 1 /hpf (0 - 5)
--- NOTE | 2024-10-05 11:25 | DVH ---
Bilateral lower extremity venous duplex Clinical History: hx of dvt, LE swelling Comparison: None Technique: Duplex Doppler evaluation of the deep venous systems of both lower extremities from the common femora l veins to the popliteal veins including color Doppler and spectral/pulsed waveform analysis was perf ormed. Findings: RIGHT SIDE: The common femoral vein demonstrates appropriate compressibility and waveform variability . There is compressibility/patency of the great saphenous vein at the proximal thigh . The femoral vein demonstrates appropriate compressibility and waveform variability . The deep femoral vein demonstrates appropriate compressibility and waveform variability . The popliteal vein demonstrates appropriate compressibility and waveform variability . There is normal compressibility at the tibioperoneal trunk. LEFT SIDE: The common femoral vein demonstrates appropriate compressibility and waveform variability . There is compressibility/patency of the great saphenous vein at the proximal thigh . The femoral vein demonstrates appropriate compressibility and waveform variability . The deep femoral vein demonstrates appropriate compressibility and waveform variability . The popliteal vein demonstrates appropriate compressibility and waveform variability . There is normal compressibility at the tibioperoneal trunk. Impression: 1. No right or left femoropopliteal venous thrombosis.
[2024-10-05] MEDS: SODIUM CHLORIDE 0.9% 1,000 ML IV ONE (11:28)
[2024-10-05] MEDS: COLCHICINE 0.6 MG CAP PO ONE (11:28)
[2024-10-05 11:45] LABS: Erythrocyte Sedimentation Rate 14 mm/hr (0-20)
[2024-10-05] MEDS ORDERED: SUMAtriptan SUCCINATE 25 MG TAB PO PRN (12:15)
[2024-10-05] MEDS: ACETAMINOPHEN 325 MG TAB PO PRN (20:31)
[2024-10-06] VITALS (8 sets, daily range): BP systolic 100–131; BP diastolic 56–75; PULSE 61–74; RESP 17–19; TEMP 97.6–98.1; O2SAT 94–99
[2024-10-06] MEDS: HYDROcodone-ACET 5/325MG TAB PO PRN (01:05)
--- NOTE | 2024-10-06 06:03 | DVHSR ---
APPROVED REPORT EXAM: Two-dimensional and M-mode echocardiogram with Doppler and color Doppler. Blood Pressure: 128/80 mmHg INDICATION Atypical chest pain RISK FACTORS Height: 69, Weight: 249 DIMENSIONS LVDd5.0 (3.8-5.7cm)LA (2D)4.3 (1.9-4.0cm)Aortic Root3.1 (2.0-3.7cm) LVDs3.4 (2.5-4.0cm)LA (MM) (1.9-4.0cm)Aortic Cusp Exc2.0 (1.5-2.0cm) EF (%) 60.0 (55-70%)Rt. Atrium4.2 (1.9-4.0cm)Asc. Aorta cm IVSd1.0 (0.7-1.1cm)RV (D) (1.8-2.4cm) PWd1.1 (0.7-1.1cm) Mitral Valve MitralMitral Stenosis E wave0.65m/sMV Mean GR.mmHg A wave0.69m/sMV Peak GR.58mmHg E/A ratio0.92D MVAcm2 DECEL [id number] 1/2 [id number] IVRTmsDop MVA3.22cm2 Aortic Valve Aortic ValveAortic Stenosis V11.07m/Wu Mean GR.4mmHg V21.45m/Wu Peak GR.8mmHg LVOT Diameter1.9 (1.8-2.4cm)Doppler AVA2.09cm2 Pulmonic Valve V21.04m/s Tricuspid Valve TR Velocity1.94m/s [id number] Other Information Technically limited study due to body habitus. Conclusion lvef 60% by visual estimate normal RV function, RV enlarged biatrial enlarged mild no severe valve abnormalities noted normal pericardium
[2024-10-06 06:30] LABS: Basophils # (auto) 0 10 ^3/uL (0-0.2); Basophils % (auto) 0.4 % (0.0-2.0); Eosinophils # (auto) 0.2 10 ^3/uL (0-0.8); Eosinophils % (auto) 5.2 % (0.0-7.0); Hematocrit 37.3 % (36.0-46.0); Hemoglobin 12.6 g/dL (12.2-16.2); Lymphocytes # (auto) 2.1 10 ^3/uL (0.4-5.4); Lymphocytes % (auto) 45.1 % (10.0-50.0); Mean Corpuscular Hemoglobin 31.3 pg (28.0-32.0); Mean Corpuscular Hgb Conc. 33.9 g/dL (32.0-36.0); Mean Corpuscular Volume 92.4 fL (80.0-100.0); Monocytes # (auto) 0.4 10 ^3/uL (0-1.3); Monocytes % (auto) 7.6 % (0.0-12.0); Neutrophils % (auto) 41.7 % (37.0-80.0); Nucleated Red Blood Cells % 0.5 %; Platelet Count (auto) 163 10^3/uL (140-450); Red Blood Cells 4.04 10^6/uL (4.0-5.20); Red Cell Distribution Width 13.3 % (11.8-14.3); White Blood Cell 4.7 10^3/uL (4.4-10.8)
[2024-10-06 06:45] LABS: Alanine Aminotransferase 16 U/L (7-40); Albumin 3.4 g/dL (3.2-4.8); Alkaline Phosphatase 67 U/L (46-116); Anion Gap 6 (5-15); Aspartate Aminotransferase 17 U/L (13-40); BUN/Creatinine Ratio 5.6 (10.0-20.0); Calcium 9.4 mg/dL (8.7-10.4); Carbon Dioxide 27 mmol/L (20-31); Glucose 93 mg/dL (74-106); Potassium 4.1 mmol/L (3.5-5.1); Sodium 141 mmol/L (136-145)
[2024-10-06 06:46] LABS: Bilirubin, Total 0.5 mg/dL (0.2-1.0); Total Protein 6.4 g/dL (5.7-8.2)
[2024-10-06 06:48] LABS: Blood Urea Nitrogen 6 mg/dL (9-23); Chloride 108 mmol/L (98-107)
[2024-10-06] MEDS: MONTELUKAST SODIUM 10 MG TAB PO SCH (11:15)
[2024-10-06] MEDS: FUROSEMIDE 40 MG TAB PO SCH (11:15)
[2024-10-06] MEDS: COLCHICINE 0.6 MG CAP PO SCH (11:16)
[2024-10-06] MEDS: RIVAROXABAN 20 MG TAB PO SCH (11:16)
--- NOTE | 2024-10-06 11:28 | DVHPN2 ---
Subjective The patient seen and examined at bedside. Still complains of chest pain. Reviewed: Care Plan, H&P, Labs, Medications, Previous Orders, Radiology Changes from previous H/P or p: No Changes Eyes: No Pain, No Vision change, No Conjunctivae inflammation, No Eyelid inflammation, No Other, No Redness ENT: No Ear pain, No Ear discharge, No Nose pain, No Nose discharge, No Nose congestion, No Mouth pain, No Mouth swelling, No Throat pain, No Throat swelling, No Other Cardiovascular: Chest Pain; No Palpitations, No Orthopnea, No Paroxysmal Noc. Dyspnea, No Edema, No Lt Headedness, No Other Respiratory: No Cough, No Dry, No Shortness of breath, No SOB with excertion, No Wheezing, No Hemoptysis, No Pleuritic Pain, No Sputum, No Other Gastrointestinal: No Nausea, No Vomiting, No Abdominal Pain, No Diarrhea, No Constipation, No Melena, No Hematochezia, No Other Genitourinary: No Dysuria, No Frequency, No Incontinence, No Hematuria, No Retention, No Other Musculoskeletal: No other, No neck pain, No shoulder pain, No arm pain, No back pain, No hand pain, No leg pain, No foot pain Skin: No Rash, No Lesions, No Jaundice, No Bruising, No Other Objective Vitals Vital Signs Date Time Temp Pulse Resp B/P (MAP) Pulse Ox O2 Delivery O2 Flow Rate FiO2 10/06/24 11:15 107/64 10/06/24 09:00 98.0 68 18 95 98.0 10/05/24 20:00 Room Air* 0 N/A Nasal Cannula* Intake/Output Intake and Output 10/06/24 07:00 Intake Total 715 ml Output Total 400 ml Balance 315 ml Intake Oral 640 ml IV Total 75 ml Output Urine Total 400 ml # Voids 7 General Appearance: Alert, Oriented X3, Cooperative, No acute distress HEENT: Atraumatic, PERRLA, EOMI, Mucous membr. moist/pink Neck: Supple Lungs: Clear to auscultation, Normal air movement Cardiovascular: Regular rate, Normal S1, Normal S2, No murmurs, Gallops, Rubs Abdomen: Normal bowel sounds, Soft Neuro: Cranial nerves 3-12 NL Psych/Mental Status: Mental status NL Medications Current Medications Medications Dose Ordered Sig/Anastasia Route Start Time Stop Time Status Last Admin Dose Admin Ondansetron HCl 4 mg Q4HP PRN IV 10/05/24 09:45 10/05/24 20:26 4 MG Morphine Sulfate 2 mg Q4HPRN PRN IV 10/05/24 09:45 10/05/24 16:08 2 MG Morphine Sulfate 2 mg Q30M PRN IV 10/05/24 09:45 Acetaminophen/ Hydrocodone Bitart 1 tab Q4HP PRN PO 10/05/24 09:45 10/06/24 01:05 1 TAB Acetaminophen 650 mg Q6HP PRN PO 10/05/24 09:45 10/05/24 20:31 650 MG Nitroglycerin 0.4 mg Q5MINP PRN SL 10/05/24 09:45 Furosemide 40 mg DAILY PO 10/06/24 10:00 10/06/24 11:15 40 MG Montelukast Sodium 10 mg DAILY PO 10/06/24 10:00 10/06/24 11:15 10 MG Rivaroxaban 20 mg DAILY PO 10/06/24 10:00 10/06/24 11:16 20 MG Sumatriptan Succinate 50 mg DAILY PRN PO 10/05/24 12:15 Colchicine 0.6 mg DAILY PO 10/06/24 10:00 10/06/24 11:16 0.6 MG Laboratory Results Laboratory Tests 10/06/24 06:10 Chemistry Test 10/06/24 06:10 Albumin 3.4 g/dL (3.2-4.8) Calcium Level 9.4 mg/dL (8.7-10.4) Total Protein 6.4 g/dL (5.7-8.2) LFT Test 10/06/24 06:10 Alanine Aminotransferase (ALT) 16 U/L (7-40) Alkaline Phosphatase 67 U/L (46-116) Aspartate Amino Transferase (AST) 17 U/L (13-40) Total Bilirubin 0.5 mg/dL (0.2-1.0) Urinalysis Test 10/05/24 10:47 Urine Color Yellow (Yellow) Urine Clarity Clear (Clear) Urine pH 5.0 (5.0-9.0) Urine Specific [place] 1.022 (1.001-1.035) Urine Protein Negative (Negative) Urine Ketones Negative (Negative) Urine Blood Negative /uL (Negative) Urine Nitrite Negative (Negative) Urine Bilirubin Negative (Negative) Urine Urobilinogen Normal mg/dL (Negative) Urine Leukocyte Esterase Negative /uL (Negative) Urine RBC 1 /hpf (0 - 4) Urine WBC 1 /hpf (0 - 5) Urine Squamous Epithelial Cells Few /hpf (<5) Urine Bacteria None seen /hpf (None Seen) Urine Mucus Few (None Seen) Urine Glucose Normal mg/dL (Normal) Labs and/or images reviewed: Labs reviewed by me Assessment/Plan Assessment/Plan # Atypical Chest pain, possible musculoskeletal # Rule out acute coronary syndrome # Hx of Afib--? Paroxysmal, currently sinus rhythm # Hx CHF, normal BNP # KELLY on CKD 3A # Hx of bilateral lower extremity DVT # hx of lupus # migraines # prediabetes # obesity Lifestyle modification counseled with diet regular exercise and weight loss Plan: Continuing current management. Waiting for cut off saw grader to see the patient. Continuing to monitor kidney function. Continuing sliding scale insulin. Continuing Accu-Chek. Migraine headache p.r.n. medication Plan discussed with: Patient Date of Service: Oct 06, 2024 Billing Provider: ANNELISE WAGONER MD Common Visit Codes: [id number] INP/OBS CARE(HIGH) ANNELISE WAGONER MD Oct 06, 2024 11:28
[2024-10-06] MEDS: DOCUSATE SOD 100 MG CAP PO SCH (15:57)
[2024-10-06] MEDS: LACTULOSE 20Gm/30ML SOLN PO SCH (15:57)
[2024-10-07 01:00] VITALS: BP 101/61; PULSE 74; RESP 19; TEMP 98; O2SAT 94
[2024-10-07 05:00] VITALS: BP 107/5; PULSE 64; RESP 19; TEMP 97.9; O2SAT 94
[2024-10-07 08:00] VITALS: PULSE 64; PULSE 66; RESP 16; O2SAT 94
[2024-10-07 09:00] VITALS: BP 108/68; PULSE 64; RESP 16; TEMP 97.8; O2SAT 94
[2024-10-07] MEDS ORDERED: COLC1CAP PO (10:54)
[2024-10-07 12:26] VITALS: BP 108/68; PULSE 64; RESP 16; TEMP 97.8; O2SAT 94
[2024-10-07 12:47] VITALS: BP 93/49; PULSE 61; RESP 18; TEMP 97.9; O2SAT 99
== END 2024-10-07 13:45 | disposition home or self-care (01) | DRG 203 ==
LOC: ER 23:33 → EDBD 23:33 → TELE 10-05 09:18 → ER 10-05 09:30 → TELE-E-ADS 10-05 14:03
PROVIDERS: ADMIT Registered Nurse; ATTEND Internal Medicine
DX: R07.89 Other chest pain (principal); N17.9 Acute kidney failure, unspecified; I13.0 Hypertensive heart and chronic kidney disease with heart failure and stage 1 through stage 4 chronic kidney disease, or unspecified chronic kidney disease; I50.9 Heart failure, unspecified; E66.01 Morbid (severe) obesity due to excess calories; G43.909 Migraine, unspecified, not intractable, without status migrainosus; E78.5 Hyperlipidemia, unspecified; I48.91 Unspecified atrial fibrillation; N18.31 Chronic kidney disease, stage 3a; R73.03 Prediabetes; Z88.6 Allergy status to analgesic agent; Z88.2 Allergy status to sulfonamides; Z91.041 Radiographic dye allergy status; Z79.1 Long term (current) use of non-steroidal anti-inflammatories (NSAID); Z79.899 Other long term (current) drug therapy; Z86.718 Personal history of other venous thrombosis and embolism; Z79.01 Long term (current) use of anticoagulants; Z68.37 Body mass index [BMI] 37.0-37.9, adult
CPT/HCPCS: 36415; 70450; 71045; 80053; 80061; 81001; 83735; 83880; 84443; 84484; 85025; 85652; 93005; 93306; 93970; G0378; J2405

== ENCOUNTER 2025-01-22 11:34 | Inpatient (IN) | payer MEDICAID ==
[~2025-01-22] VITALS: Ht 175.3 cm; Wt 82.0 kg
[~2025-01-22 11:34] MED LIST changes: +COLC1CAP PO; +FURO40TA4 PO; +MONT-8 PO; +RIV20T PO
--- NOTE | 2025-01-22 11:51 | ED.PDOC ---
HPI (NEURO) HPI Comments 59 y/o F, with PMHX of lupus, DM, hypotension, and HLD presents to the ED for CC of headache. Per EMS, patient has been experiencing left sided headaches [id number] that have recently worsened in the last 3 days. EMS reports, patient states she was taken off her lupus medication [id number] ago; headaches followed as a result. Patient comments on, new onset symptoms of nausea and vomiting starting today (01/22/25). Patient denies dizziness, fatigue, weakness, fever, or blurred vision. No other symptoms or modifying factors present at this time. Time Seen by MD: 11:30 Primary Care Provider: EMRE Jason Notes: Nurses Notes, Recreation Establishment Manager Notes, Medications, Allergies Information Source: Patient, Emergency Med Personnel Mode of Arrival: EMS Severity: Moderate Dizziness/Weakness Severity: Does not affect activitie Headache Severity: Moderate Timing: Days Duration: Since onset Prehospital treatment: None Headache Quality: Other (pressure) Headache Location: Parietal, Temporal Onset: At rest Circumstances: Recent stress Symptoms: None History of: None Modifying factors: Nothing Associated Signs and Symptoms: Nausea, Vomiting Past Medical History PAST MEDICAL HISTORY: AFIB, DM, High Lipids, Hypotension Past Medical History (Other): lupus Surgical History: Cholecystectomy, Hysterectomy Surgical History (Other): left knee STEAM TRAP MAN History: No Pertinent STEAM TRAP MAN History Family History Family History: Reviewed,noncontributory to illness, No family hx of Cancer, No family hx of DM, No family hx of Heart libia, No family hx of HTN, No family hx ofKidney libia, No family hx of Liver libia, No family hx of Lung libia, No family hx of Stroke Social History Smoker: Non-Smoker Alcohol: Denies ETOH Use Drugs: Denies Drug Use Lives In: Home Constitutional: denies: chills, diaphoresis, fatigue, fever, malaise, sweats, weakness, others EENTM: denies: blurred vision, double vision, ear bleeding, ear discharge, ear drainage, ear pain, ear ringing, eye pain, eye redness, hearing loss, mouth pain, mouth swelling, nasal discharge, nose bleeding, nose congestion, nose pa in, photophobia, tearing, throat pain, throat swelling, voice changes, others Respiratory: denies: cough, hemoptysis, orthopnea, SOB at rest, shortness of breath, SOB with excertion, stridor, wheezing, others Cardiovascular: denies: chest pain, dizzy spells, diaphoresis, Dyspnea on exertion, edema, irregular heart beat, left arm pain, lightheadedness, palpitations, PND, syncope, others Gastrointestinal: reports: nausea, vomiting; denies: abdomen distended, abdominal pain, blood streaked bowels, constipated, diarrhea, dysphagia, difficulty swallowing, hematemesis, melena, poor appetite, poor fluid intake, rectal bleeding, rectal pain, others Genitourinary: denies: abnormal vagina bleeding, burning, dyspareunia, dysuria, flank pain, frequency, hematuria, incontinence, pain, , vagina discharge, urgency, others Neurological: reports: headache Musculoskeletal: denies: back pain, gout, joint pain, joint swelling, muscle pain, muscle stiffness, neck pain, others Integumetry: denies: bruises, change in color, change in hair/nails, dryness, laceration, lesions, lumps, rash, wounds, others Allergic/Immunocompromised: denies: Difficulty Healing, Frequent Infections, Hives, Itching, others Hematologic/Lymphatic: denies: anemia, blood clots, easy bleeding, easy bruising, swollen glands, others Endocrine: denies: excessive hunger, excessive sweating, excessive thirst, excessive urination, flushing, intolerance to cold, intolerance to heat, unexplained weight gain, unexplained weight loss, others Psychiatric: denies: anxiety, bipolar disorder, depression, hopeless, panic disorder, schizophrenia, sleepless, suicidal, others All Other Systems: Reviewed and Negative Physical Exam General Appearance: Moderate Distress HEENT: Normal ENT Inspection, Pharynx Normal, TMs Normal Neck: Full Range of Motion, Non-Tender, Normal, Normal Inspection Respiratory: Chest Non-Tender, Lungs Clear, No Accessory Muscle Use, No Respiratory Distress, Normal Breath Sounds Cardiovascular: No Edema, No JVD, No Murmur, No Gallop, Normal Peripheral Pulses, Regular Rate/Rhythm Breast Exam: Deferred Gastrointestinal: No Organomegaly, Non Tender, No Pulsatile Mass, Normal Bowel Sounds, Soft Genitalia: Deferred Pelvic: Deferred Rectal: Deferred Extremities: No calf tenderness, Normal capillary refill, Normal inspection, Normal range of motion, Non-tender, No pedal edema Musculoskeletal : Apperance: Normal Neurologic: Alert, assembler gold frame II-XII nml as Tested, No Motor Deficits, Normal Affect, Normal Mood, No Sensory Deficits Cerebellar Function: Normal Reflexes: Normal Skin: Dry, Normal Color, Warm Lymphatic: No Adenopathy EKG EKG : Pulse Rate (adult): 63 [place]: Normal Cardiac Rhythm: NSR Block: None Hypertrophy: LAE ST: Normal Was a procedure done? Was a procedure done?: No Differential Diagnosis (SZ) Seizure: N/A Headache: Cluster, Migraine, Sinusitis X-Ray, Labs, Meds, VS Vital Signs Date Time Temp Pulse Resp B/P (MAP) Pulse Ox O2 Delivery O2 Flow Rate FiO2 01/22/25 13:03 63 13 100/58 01/22/25 12:40 66 14 98 Room Air* 0 21 01/22/25 12:13 98.1 65 14 109/66 (80) 98 98.1 01/22/25 12:00 65 01/22/25 11:51 98.3 80 16 120/71 (87) 98 98.3 01/22/25 11:51 63 01/22/25 11:48 63 Lab Test 01/22/25 12:07 Range/Units White Blood Count 8.7 4.4-10.8 10^3/uL Red Blood Count 4.34 4.0-5.20 10^6/uL Hemoglobin 13.8 12.2-16.2 g/dL Hematocrit 40.7 36.0-46.0 % Mean Corpuscular Volume 93.7 80.0-100.0 fL Mean Corpuscular Hemoglobin 31.7 28.0-32.0 pg Mean Corpuscular Hemoglobin Concent 33.9 32.0-36.0 g/dL Red Cell Distribution Width 14.0 11.8-14.3 % Platelet Count 165 140-450 10^3/uL Mean Platelet Volume 10.3 6.9-10.8 fL Neutrophils (%) (Auto) 52.3 37.0-80.0 % Lymphocytes (%) (Auto) 37.4 10.0-50.0 % Monocytes (%) (Auto) 5.4 0.0-12.0 % Eosinophils (%) (Auto) 3.2 0.0-7.0 % Basophils (%) (Auto) 1.7 0.0-2.0 % Neutrophils # (Auto) 4.6 1.6-8.6 10 ^3/uL Lymphocytes # (Auto) 3.3 0.4-5.4 10 ^3/uL Monocytes # (Auto) 0.5 0-1.3 10 ^3/uL Eosinophils # (Auto) 0.3 0-0.8 10 ^3/uL Basophils # (Auto) 0.1 0-0.2 10 ^3/uL Nucleated Red Blood Cells 0.3 % Platelet Estimate Adequate Clumped Platelets Few Sodium Level 140 136-145 mmol/L Potassium Level 4.0 3.5-5.1 mmol/L Chloride Level 109 H 98-107 mmol/L Carbon Dioxide Level 26 20-31 mmol/L Anion Gap 5 5-15 Blood Urea Nitrogen 8 L 9-23 mg/dL Creatinine 1.09 H 0.550-1.02 mg/dL Glomerular Filtration Rate Calc 58 >90 mL/min BUN/Creatinine Ratio 7.3 L 10.0-20.0 Serum Glucose 82 74-106 mg/dL Calcium Level 9.9 8.7-10.4 mg/dL Current Medications Medications (Trade) Dose Ordered Sig/Anastasia Route Start Time Stop Time Status Last Admin Sodium Chloride 500 ml @ 500 mls/hr Q1H ONCE IV 01/22/25 11:45 01/22/25 12:44 DC 01/22/25 13:19 Morphine Sulfate 4 mg ONCE ONCE IV 01/22/25 11:45 01/22/25 11:48 DC 01/22/25 13:03 Ondansetron HCl (Zofran) 4 mg ONCE ONCE IV 01/22/25 11:45 01/22/25 11:48 DC 01/22/25 12:55 CT scan of the head is negative The CBC and chemistry panel are within normal limits The patient had an IV Hep-Lock established and given normal saline at a 500 cc bolus. The patient was then given morphine 4 mg push The patient was given Zofran 4 mg IV push The patient was being admitted to the hospitalist The patient was now complaining of some abdominal pain The patient understands and agrees with the management. Images Reviewed?: Images reviewed and evaluated by me Time of 1ST Reevaluation: 12:00 Reevaluation 1ST: Unchanged Patient Education/Counseling: Diagnosis, Treatment, Prognosis Family Education/Counseling: No Family Present Departure 1 Departure Time of Disposition: 14:22 Impression: Primary Impression: Intractable headache Qualified Codes: G44.201 - Tension-type headache, unspecified, intractable Additional Impressions: Abdominal pain Qualified Codes: R10.84 - Generalized abdominal pain Nausea Disposition: ADMITTED INPATIENT Admit to: Med Surg Condition: Fair Critical Care Note Critical Care Time?: No Stability Stability form required: Yes Unstable for transfer: ED Physician Assesment (Clinical assesment) Heart Score Heart Score: Heart Score Response (Comments) Value History N/A 0 EKG N/A 0 Age N/A 0 Risk Factors N/A 0 Troponin N/A 0 Total 0 I personally scribed for DONTAE COLUNGA MD ([email or web address]) on 01/22/25 at 11:50. Electronically submitted by Rosalba Taylor ([email or web address]). I personally scribed for DONTAE COLUNGA MD ([email or web address]) on 01/22/25 at 11:51. Electronically submitted by Rosalba Taylor ([email or web address]). DONTAE COLUNGA MD Jan 22, 2025 11:50
[2025-01-22 12:27] LABS: Sodium 140 mmol/L (136-145)
[2025-01-22 12:28] LABS: Anion Gap 5 (5-15); Calcium 9.9 mg/dL (8.7-10.4); Carbon Dioxide 26 mmol/L (20-31)
[2025-01-22 12:29] LABS: Chloride 109 mmol/L (98-107)
[2025-01-22 12:33] LABS: BUN/Creatinine Ratio 7.3 (10.0-20.0); Glucose 82 mg/dL (74-106)
[2025-01-22 12:34] LABS: Basophils # (auto) 0.1 10 ^3/uL (0-0.2); Basophils % (auto) 1.7 % (0.0-2.0); Eosinophils # (auto) 0.3 10 ^3/uL (0-0.8); Eosinophils % (auto) 3.2 % (0.0-7.0); Hematocrit 40.7 % (36.0-46.0); Hemoglobin 13.8 g/dL (12.2-16.2); Lymphocytes # (auto) 3.3 10 ^3/uL (0.4-5.4); Lymphocytes % (auto) 37.4 % (10.0-50.0); Mean Corpuscular Hemoglobin 31.7 pg (28.0-32.0); Mean Corpuscular Hgb Conc. 33.9 g/dL (32.0-36.0); Mean Corpuscular Volume 93.7 fL (80.0-100.0); Monocytes # (auto) 0.5 10 ^3/uL (0-1.3); Monocytes % (auto) 5.4 % (0.0-12.0); Neutrophils # (auto) 4.6 10 ^3/uL (1.6-8.6); Neutrophils % (auto) 52.3 % (37.0-80.0); Nucleated Red Blood Cells % 0.3 %; Platelet Count (auto) 165 10^3/uL (140-450); Red Blood Cells 4.34 10^6/uL (4.0-5.20); White Blood Cell 8.7 10^3/uL (4.4-10.8)
[2025-01-22 12:40] VITALS: PULSE 66; RESP 14; O2SAT 98
[2025-01-22 12:40] LABS: Blood Urea Nitrogen 8 mg/dL (9-23)
[2025-01-22] MEDS: ONDANSETRON HCL 4 MG/2 ML VIAL IV ONE (12:55)
[2025-01-22 12:56] LABS: Platelet Estimate Adequate
[2025-01-22] MEDS: MORPHINE SULFATE 4 MG/ML SYR/VIAL IV ONE (13:03)
[2025-01-22] MEDS: SODIUM CHLORIDE 0.9% 500 ML IV ONE (13:19)
--- NOTE | 2025-01-22 14:06 | DVH ---
EXAM: CT HEAD WITHOUT CONTRAST HISTORY: FRANCIS COMPARISON: CT HEAD WITHOUT CONTRAST on DOS: 10/05/24, CT HEAD WITHOUT CONTRAST on DOS: 04/17/24 TECHNIQUE: Axial images were obtained and reformatted in coronal and sagittal planes. All CT scans at this medical facility are performed using dose modulation techniques as appropriate t o a performed exam including the following: Automated exposure control was utilized; adjustment of th e MA and/or KV according to patient size; and use of iterative reconstruction technique. CT Dose: CTDI volume is 55.43 mGy. Dose-length product is 870.67 mGy*cm FINDINGS: Supratentorial Region: No evidence for large acute territorial ischemia. No intracranial hemorrhage is noted. Posterior Fossa: No acute abnormality. Brainstem: Unremarkable. Sellar/Suprasellar Region: Unremarkable. Ventricles, Cisterns, Sulci: Age-appropriate. Orbits: Unremarkable. Paranasal Sinuses: Unremarkable. Mastoid Air Cells: Unremarkable. Vasculature: Unremarkable. Bones/Soft Tissues: No acute abnormality. Other: None. IMPRESSION: 1. No acute intracranial process.
--- NOTE | 2025-01-22 18:56 | ECG ---
[facility] Test Date: 2025-01-22 Test Time: 11:48:33 Pat Name: OLGA CAVANAUGH Department: ED Room: 0272 Gender: F Title Supervisor: dougie : 1965 Requested By: DONTAE COLUNGA Order Number: [id number] Reading MD: Jono Pendleton Measurements Intervals [place] Rate: 63 P: 64 NE: 143 QRS: -27 QRSD: 106 T: 26 QT: 416 QTc: 426 Interpretive Statements Sinus rhythm Borderline left axis deviation Abnormal R-wave progression, early transition Electronically Signed On 01-23-2025 18:46:33 PDT by Jono Pendleton Please click the below link to view image of tracing.
[2025-01-22] MEDS ORDERED: TEMAZEPAM 15 MG CAP PO PRN (19:30)
[2025-01-22] MEDS ORDERED: DEXTROSE (50%) 50ML SYRG IV PRN (19:30)
[2025-01-22] MEDS ORDERED: ACETAMINOPHEN 325 MG TAB PO PRN (19:30)
[2025-01-22] MEDS: HYDROcodone-ACET 5/325MG TAB PO PRN (20:34)
[2025-01-22 21:24] VITALS: PULSE 62; RESP 13; O2SAT 95
[2025-01-22] MEDS: InsuLIN REG 1unit/0.01ml Soln (100units/ml) SC SCH (22:00)
[2025-01-22] MEDS: ACCU-CHEK COMFORT CURVE STRIP VI SCH (22:11)
[2025-01-22] MEDS: ATORVASTATIN 20 MG TAB PO SCH (22:12)
--- NOTE | 2025-01-22 22:20 | DVHHP2 ---
History of Present Illness Reason for Visit: Headache History of Present Illness 59-year-old female presents for evaluation of a headache. Patient reports a three day history of diffuse throbbing headache with associated dizziness and occasional nausea. She states his symptoms became worse today so she presented for further evaluation. Denies unilateral weakness or slurred speech. No chest pain or shortness for breath. Past Medical History Hypotension, dyslipidemia, diabetes mellitus, atrial fibrillation, lupus Past Surgical History Hysterectomy, cholecystectomy Family History Noncontributory Smoke: No ALCOHOL: none Drugs: None Lives: with Family Review of Systems Review of Systems Review of systems are currently negative otherwise addressed in HPI. Allergies: Coded Allergies: Iodine (Verified Allergy, Unknown, 04/17/24) Sulfa Antibiotics (Verified Allergy, Unknown, 04/17/24) Medications Current Medications Medications Dose Ordered Sig/Anastasia Route Start Time Stop Time Status Last Admin Dose Admin Sumatriptan Succinate 50 mg Q2HP PRN PO 01/22/25 19:30 Furosemide 40 mg DAILY PO 01/23/25 10:00 Atorvastatin Calcium 20 mg HS PO 01/22/25 22:00 01/22/25 22:12 20 MG Rivaroxaban 20 mg QPM PO 01/23/25 18:00 Diagnostic Test (Pha) 1 strip ACHS 01/22/25 22:00 01/22/25 22:11 1 STRIP Insulin Human Regular ACHS SC 01/22/25 22:00 Dextrose 50 ml UD PRN IV 01/22/25 19:30 Acetaminophen/ Hydrocodone Bitart 1 tab Q4HP PRN PO 01/22/25 19:30 01/22/25 20:34 1 TAB Temazepam 15 mg QHSP PRN PO 01/22/25 19:30 Ondansetron HCl 4 mg Q4HP PRN IV 01/22/25 19:30 Acetaminophen 650 mg Q6HP PRN PO 01/22/25 19:30 Exam Vital Signs Vital Signs Date Time Temp Pulse Resp B/P (MAP) Pulse Ox O2 Delivery O2 Flow Rate FiO2 01/22/25 21:30 63 13 102/64 (77) 97 01/22/25 21:24 Room Air* 0 21 21 01/22/25 20:00 98.2 98.2 Exam Gen: 59-year-old female in mild distress Skin: Warm, dry, normal color and texture, no rash. HEENT: Normocephalic atraumatic, mucous membranes moist and pink. Neck: Cervical and supraclavicular nodes normal without enlargement, trachea is midline, thyroid gland is normal without masses. Pulmonary: Clear to auscultation and percussion bilaterally. Cardiac: Regular rate and rhythm. No murmur Abdomen: Soft, nontender, nondistended, bowel sounds present all 4 quadrants, no guarding, no rigidity, no organomegaly. Extremities: No cyanosis, clubbing, no edema Neuro: Cranial nerves II through XII grossly intact, normal affect and speech, no focal motor deficits. Labs/Xrays ORDERING PHYSICIAN: DONTAE COLUNGA MD PROCEDURE(s): HWOCT - HEAD WITHOUT CONTRAST REASON: FRANCIS ORDER NUMBER(s): [id number], ACCESSION NUMBER(s): [id number] EXAM: CT HEAD WITHOUT CONTRAST HISTORY: FRANCIS COMPARISON: CT HEAD WITHOUT CONTRAST on DOS: 10/05/24, CT HEAD WITHOUT CONTRAST on DOS: 04/17/24 TECHNIQUE: Axial images were obtained and reformatted in coronal and sagittal planes. All CT scans at this medical facility are performed using dose modulation techniques as appropriate to a performed exam including the following: Automated exposure control was utilized; adjustment of the MA and/or KV according to patient size; and use of iterative reconstruction technique. CT Dose: CTDI volume is 55.43 mGy. Dose-length product is 870.67 mGy*cm FINDINGS: Supratentorial Region: No evidence for large acute territorial ischemia. No intracranial hemorrhage is noted. Posterior Fossa: No acute abnormality. Brainstem: Unremarkable. Sellar/Suprasellar Region: Unremarkable. Ventricles, Cisterns, Sulci: Age-appropriate. Orbits: Unremarkable. Paranasal Sinuses: Unremarkable. Mastoid Air Cells: Unremarkable. Vasculature: Unremarkable. Bones/Soft Tissues: No acute abnormality. Other: None. IMPRESSION: 1. No acute intracranial process. Labs Test 01/22/25 12:07 Range/Units White Blood Count 8.7 4.4-10.8 10^3/uL Red Blood Count 4.34 4.0-5.20 10^6/uL Hemoglobin 13.8 12.2-16.2 g/dL Hematocrit 40.7 36.0-46.0 % Mean Corpuscular Volume 93.7 80.0-100.0 fL Mean Corpuscular Hemoglobin 31.7 28.0-32.0 pg Mean Corpuscular Hemoglobin Concent 33.9 32.0-36.0 g/dL Red Cell Distribution Width 14.0 11.8-14.3 % Platelet Count 165 140-450 10^3/uL Mean Platelet Volume 10.3 6.9-10.8 fL Neutrophils (%) (Auto) 52.3 37.0-80.0 % Lymphocytes (%) (Auto) 37.4 10.0-50.0 % Monocytes (%) (Auto) 5.4 0.0-12.0 % Eosinophils (%) (Auto) 3.2 0.0-7.0 % Basophils (%) (Auto) 1.7 0.0-2.0 % Neutrophils # (Auto) 4.6 1.6-8.6 10 ^3/uL Lymphocytes # (Auto) 3.3 0.4-5.4 10 ^3/uL Monocytes # (Auto) 0.5 0-1.3 10 ^3/uL Eosinophils # (Auto) 0.3 0-0.8 10 ^3/uL Basophils # (Auto) 0.1 0-0.2 10 ^3/uL Nucleated Red Blood Cells 0.3 % Platelet Estimate Adequate Clumped Platelets Few Sodium Level 140 136-145 mmol/L Potassium Level 4.0 3.5-5.1 mmol/L Chloride Level 109 H 98-107 mmol/L Carbon Dioxide Level 26 20-31 mmol/L Anion Gap 5 5-15 Blood Urea Nitrogen 8 L 9-23 mg/dL Creatinine 1.09 H 0.550-1.02 mg/dL Glomerular Filtration Rate Calc 58 >90 mL/min BUN/Creatinine Ratio 7.3 L 10.0-20.0 Serum Glucose 82 74-106 mg/dL Hemoglobin A1c 5.1 <5.7 % A1C Calcium Level 9.9 8.7-10.4 mg/dL Lipase 34 12-53 U/L Thyroid Stimulating Hormone (TSH) 1.20 0.55-4.78 uIU/mL Assessment/Plan Assessment/Plan Assessment Intractable headache Diabetes mellitus Chronic kidney disease Diabetes mellitus Plan Admit the patient to [facility] to the hospitalist MRI of the brain pending Sumatriptan Nephrology consultation Continue treatment per orders. Plan discussed with: Patient My Orders Orders - DARIN HUMPHREYS Procedure Category Date Status Time Sumatriptan Succinate PHA 01/22/25 In Process Tablet (Imitrex Ta 19:30 * Neurology Consult CONS 01/22/25 Transmitted 19:25 Brain Head Wo Contrast MRI 01/22/25 Logged 19:25 Furosemide Tablet PHA 01/23/25 In Process (Lasix Tablet) 10:00 Atorvastatin (Lipitor) PHA 01/22/25 In Process 22:00 Rivaroxaban Tablet PHA 01/23/25 In Process (Xarelto Tablet) 18:00 Basic Metabolic Panel LAB 01/23/25 Verified 04:00 Glucose Blood PHA 01/22/25 In Process (Accu-Chek Comfort 22:00 Insulin R (Human) PHA 01/22/25 In Process (Insulin R) 22:00 Dextrose 50% Syringe PHA 01/22/25 In Process 19:30 Admit ADMIT 01/22/25 Transmitted 19:25 Hydrocodone-Acet PHA 01/22/25 In Process 5/325mg Tab ([place] 19:30 Temazepam (Restoril) PHA 01/22/25 In Process 19:30 Ondansetron Hcl PHA 01/22/25 In Process (Zofran) 19:30 Cardiac DIET 01/23/25 Transmitted Diet-2gna,Lofat,Lochol Breakfast Condition: Stable DIANA 01/22/25 In Process 19:25 Acetaminophen Tablet PHA 01/22/25 In Process (Tylenol Tablet) 19:30 Bedrest With Bathroom DIANA 01/22/25 In Process Privileg 19:25 Date of Service: Jan 22, 2025 Billing Provider: DARIN HUMPHREYS Common Visit Codes: [id number] INP/OBS CARE (MOD) DARIN HUMPHREYS Jan 22, 2025 22:20
[2025-01-22 22:38] VITALS: PULSE 60; RESP 17; O2SAT 93
[2025-01-22] MEDS: ONDANSETRON HCL 4 MG/2 ML VIAL IV PRN (22:52)
[2025-01-23 01:00] VITALS: BP 104/67; PULSE 60; RESP 17; TEMP 97.8; O2SAT 93
[2025-01-23] MEDS: SUMAtriptan SUCCINATE 25 MG TAB PO PRN (03:17)
[2025-01-23 05:00] VITALS: BP 109/64; PULSE 65; RESP 19; TEMP 97.7; O2SAT 95
[2025-01-23 06:27] LABS: Chloride 105 mmol/L (98-107); Potassium 3.9 mmol/L (3.5-5.1); Sodium 139 mmol/L (136-145)
[2025-01-23 06:28] LABS: Anion Gap 7 (5-15); Carbon Dioxide 27 mmol/L (20-31)
[2025-01-23 06:29] LABS: Calcium 9.4 mg/dL (8.7-10.4)
[2025-01-23 06:33] LABS: BUN/Creatinine Ratio 7.5 (10.0-20.0); Blood Urea Nitrogen 8 mg/dL (9-23); Glucose 88 mg/dL (74-106)
[2025-01-23 08:00] VITALS: O2SAT 98
[2025-01-23 09:01] VITALS: BP 104/72; PULSE 61; RESP 18; TEMP 97.8; O2SAT 95
--- NOTE | 2025-01-23 09:48 | DVH ---
EXAMINATION: MRI BRAIN HEAD WO CONTRAST INDICATION: headache COMPARISON: CT head 01/22/2025 TECHNIQUE: Multiplanar, multisequence magnetic resonance imaging of the brain was performed without t he use of intravenous contrast. FINDINGS: There is no restricted diffusion. There are few scattered subtle punctate hyperintense T2 foci in the supratentorial white matter, mostly in the frontal lobes. There is no evidence of hemorrhage, mass, mass effect or midline shift. There is no hydrocephalus or extra-axial fluid collection. The visualiz ed intracranial vasculature demonstrates appropriate flow-voids. The sagittal midline structures appe ar unremarkable. The craniocervical junction is within normal limits. The calvarium demonstrates norm al marrow signal. The paranasal sinuses and mastoid air cells are clear. IMPRESSION: 1. Few nonspecific scattered subtle punctate hyperintense T2 foci in the supratentorial white matter. These can be seen with migraine vasculopathy. Clinical correlation is recommended. HS:Y
[2025-01-23] MEDS: FUROSEMIDE 40 MG TAB PO SCH (10:47)
[2025-01-23 13:00] VITALS: BP 111/45; PULSE 65; RESP 19; TEMP 97.9; O2SAT 98
--- NOTE | 2025-01-23 13:40 | DVHDSRES ---
Discharge Summary Date of Admission Resident Creating Document: ADIA ANNE RESIDENT Jan 22, 2025 at 19:25 Date of Discharge: Jan 23, 2025 Admitting Diagnosis Intractable headache Labs/Diagnostic Data: Laboratory Results Test 01/23/25 05:41 01/23/25 04:50 01/22/25 12:07 POC Glucose 81 mg/dl (70-106) Sodium Level 139 mmol/L (136-145) Potassium Level 3.9 mmol/L (3.5-5.1) Chloride Level 105 mmol/L (98-107) Carbon Dioxide Level 27 mmol/L (20-31) Anion Gap 7 (5-15) Blood Urea Nitrogen 8 mg/dL (9-23) Creatinine 1.07 mg/dL (0.550-1.02) Glomerular Filtration Rate Calc 59 mL/min (>90) BUN/Creatinine Ratio 7.5 (10.0-20.0) Serum Glucose 88 mg/dL (74-106) Calcium Level 9.4 mg/dL (8.7-10.4) White Blood Count 8.7 10^3/uL (4.4-10.8) Red Blood Count 4.34 10^6/uL (4.0-5.20) Hemoglobin 13.8 g/dL (12.2-16.2) Hematocrit 40.7 % (36.0-46.0) Mean Corpuscular Volume 93.7 fL (80.0-100.0) Mean Corpuscular Hemoglobin 31.7 pg (28.0-32.0) Mean Corpuscular Hemoglobin Concent 33.9 g/dL (32.0-36.0) Red Cell Distribution Width 14.0 % (11.8-14.3) Platelet Count 165 10^3/uL (140-450) Mean Platelet Volume 10.3 fL (6.9-10.8) Neutrophils (%) (Auto) 52.3 % (37.0-80.0) Lymphocytes (%) (Auto) 37.4 % (10.0-50.0) Monocytes (%) (Auto) 5.4 % (0.0-12.0) Eosinophils (%) (Auto) 3.2 % (0.0-7.0) Basophils (%) (Auto) 1.7 % (0.0-2.0) Neutrophils # (Auto) 4.6 10 ^3/uL (1.6-8.6) Lymphocytes # (Auto) 3.3 10 ^3/uL (0.4-5.4) Monocytes # (Auto) 0.5 10 ^3/uL (0-1.3) Eosinophils # (Auto) 0.3 10 ^3/uL (0-0.8) Basophils # (Auto) 0.1 10 ^3/uL (0-0.2) Nucleated Red Blood Cells 0.3 % Platelet Estimate Adequate Clumped Platelets Few Hemoglobin A1c 5.1 % A1C (<5.7) Lipase 34 U/L (12-53) Thyroid Stimulating Hormone (TSH) 1.20 uIU/mL (0.55-4.78) Other Laboratory Tests 01/23/25 04:50 01/22/25 12:07 Brief Hx & Hospital Course: Any 59 over female with past medical history of lupus, hypertension, dyslipidemia, diabetes mellitus, atrial fibrillation who came to the hospital for evaluation of headache. As per patient she had three days of throbbing headache associated with occasional nausea. As per patient she had headache previously but not was like this time, she was started on lupus medication was not able to provide proper name of medication started one week ago, receiving shots of medication. During hospitalization patient underwent evaluation with CT scan of head was unremarkable, underwent brain MRI which showed Few nonspecific scattered subtle punctate hyperintense T2 foci in the supratentorial white matter. These can be seen with migraine vasculopathy. Patient was given symptomatic treatment sumatriptan for migraine, Tylenol as needed. Given patient is clinically stable, patient advised to follow with primary care physician for chronic follow-up of migraine, lupus, follow with cost estimating engineer for lupus management. Patient advised to come to emergency department if symptom recurs or worsens. Patient is clinically stable for discharge and agreed with plan. Condition at Discharge: Stable Final Diagnosis/Problems List migrane vasculopathy CKD stage 3 Lupus History of hypertension History of dyslipidemia History of diabetes mellitus type 2 Paroxysmal atrial fibrillation Discharge Disposition: Home Discharge Instruct/Medications Diet: Regular Activity: Light activity Follow Up/Referral: -Follow up with PCP in 2 week DC clinic in 1 week Medications: see prescription Discharge Statement: "Patient was advised to return to the ER or call 911 if any headaches, dizziness, shortness of breath, chest pain, abdominal pain, bleeding, fevers, or worsening of medical condition. Patient was counseled about treatment plan, medications, possible side effects, patientverbalized understanding. All questions were answered to the best of my ability. This discharge took greater then 30 minutes in planning, reviewing documentation, counseling the patient, and discussing with other team members." ASSESSMENT ASSESSMENT Assessment migrane vasculopathy CKD stage 3 ADIA ANNE RESIDENT Jan 23, 2025 13:40
[2025-01-23] MEDS ORDERED: PROM25TA10 PO (13:43)
[2025-01-23 15:51] VITALS: BP 115/67; PULSE 77; RESP 17; TEMP 97.9; O2SAT 98
[2025-01-23] MEDS ORDERED: RIVAROXABAN 20 MG TAB PO SCH (18:00)
== END 2025-01-23 16:30 | disposition home or self-care (01) | DRG 54 ==
LOC: EDBD 11:34 → ER 11:41 → OVERFLOW 19:25 → WEST WING 19:31
PROVIDERS: ADMIT Internal Medicine; ATTEND Internal Medicine
DX: G44.1 Vascular headache, not elsewhere classified (principal); E11.22 Type 2 diabetes mellitus with diabetic chronic kidney disease; M32.9 Systemic lupus erythematosus, unspecified; E78.5 Hyperlipidemia, unspecified; G43.809 Other migraine, not intractable, without status migrainosus; I48.0 Paroxysmal atrial fibrillation; I12.9 Hypertensive chronic kidney disease with stage 1 through stage 4 chronic kidney disease, or unspecified chronic kidney disease; N18.30 Chronic kidney disease, stage 3 unspecified; Z90.49 Acquired absence of other specified parts of digestive tract; Z90.710 Acquired absence of both cervix and uterus; Z79.899 Other long term (current) drug therapy
CPT/HCPCS: 36415; 70450; 70551; 80048; 82962; 83036; 83690; 84443; 85025; 93005; 96374; 96375; G0378; J2405

== ENCOUNTER 2025-07-01 13:17 | Emergency (ER) | payer MEDICAID ==
[~2025-07-01] VITALS: Ht 175.3 cm; Wt 101.0 kg
[~2025-07-01 13:17] MED LIST changes: -CEPH250C PO; +PROM25TA10 PO
[2025-07-01 14:24] LABS: Hematocrit 42.2 % (36.0-46.0); Hemoglobin 14.3 g/dL (12.2-16.2); Mean Corpuscular Hemoglobin 31.3 pg (28.0-32.0); Mean Corpuscular Volume 92.7 fL (80.0-100.0); Nucleated Red Blood Cells % 0.1 %
[2025-07-01 14:30] LABS: Sodium 143 mmol/L (136-145)
[2025-07-01 14:31] LABS: Anion Gap 8 (5-15); Calcium 9.5 mg/dL (8.7-10.4); Carbon Dioxide 27 mmol/L (20-31)
[2025-07-01 14:33] LABS: Chloride 108 mmol/L (98-107); Potassium 3.5 mmol/L (3.5-5.1)
[2025-07-01 14:36] LABS: Glucose 88 mg/dL (74-106)
[2025-07-01 14:37] LABS: BUN/Creatinine Ratio 7.0 (10.0-20.0); Blood Urea Nitrogen 8 mg/dL (9-23); Magnesium 2.0 mg/dL (1.6-2.6)
--- NOTE | 2025-07-01 14:45 | DVH ---
INDICATION: FLANK PAIN TECHNIQUE: Multiple real-time sonographic images of the kidneys and bladder were obtained. COMPARISON: None FINDINGS: RIGHT kidney measures 10.4 cm in length. No hydronephrosis. LEFT kidney measures 9.0 cm in length. 0.3 cm nonobstructing stone in the left kidney. No hydronephrosis. No large intraluminal masses are seen in the bladder. IMPRESSION: No hydronephrosis. Nonobstructing left renal stone.
--- NOTE | 2025-07-01 15:02 | ED.PDOC ---
History of Present Illness HPI Comments 60y F who presents to the ED for chief complaint of abnormal labs. Pt states she has been having back pain and dizziness for the past 3x weeks. Pt states 2x days prior she has labs done and was at PCP appt today going over labs. Pt was referred to the ED for evaluation for abnormal labs related to pts history of SLE with noted labs of creatinine 2.55 and eGFR of 20. Pt otherwise states she has not been feeling well and it has caused her difficulty with her activities of daily living. Pt otherwise has noted stable vitals in the ED. Pt denies any other symptoms at this time. Chief Complaint: abnormal labs Time Seen by MD: 13:45 Primary Care Provider: EMRE Jason Notes: Medications, Allergies Allergies: Coded Allergies: Iodine (Verified Allergy, Unknown, 04/17/24) Sulfa Antibiotics (Verified Allergy, Unknown, 04/17/24) Uncoded Allergies: ASA (Allergy, Unknown, 07/01/25) Home Meds Active Scripts Promethazine Hcl (Promethazine Hcl) 25 Mg Tab, 1 TAB PO Q6HPRN, #20 TAB Prov:ADIA ANNE RESIDENT 01/23/25 Colchicine (Colchicine) 0.6 Mg Cap, 0.6 MG PO BID, #20 CAP Prov:ANNELISE WAGONER MD 10/07/24 Ondansetron Odt 4MG Tab (ZOFRAN PO) 4 Mg Tb, 4 MG PO BID, #14 TAB ODT TAB-DISSOLVE IN MOUTH, THEN SWALLOW Prov:ALEX STEELE 04/17/24 Sumatriptan Succinate (Imitrex) 50 Mg Tab, 1 TAB PO BID, #20 TAB Prov:ALEX STEELE 04/17/24 Acetaminophen (Acetaminophen) 500 Mg Tab, 500 MG PO Q4HP PRN, #20 TAB Prov:ADRIANA MARES PAC 12/06/23 Reported Medications Rivaroxaban (Xarelto Tablet) 20 Mg Tb, 1 TAB PO DAILY 10/05/24 Montelukast Sodium (MONTELUKAST SODIUM) 10 Mg Tab, 1 TAB PO DAILY 10/05/24 Furosemide (Furosemide) 40 Mg Tab, 1 TAB PO DAILY 10/05/24 Information Source: Patient Mode of Arrival: Ambulatory Past Medical History PAST MEDICAL HISTORY: AFIB, DM, High Lipids, Hypotension Surgical History: Cholecystectomy, Hysterectomy ASSET MANAGER History: No Pertinent ASSET MANAGER History Family History Family History: Reviewed,noncontributory to illness, No family hx of Cancer, No family hx of DM, No family hx of Heart libia, No family hx of HTN, No family hx ofKidney libia, No family hx of Liver libia, No family hx of Lung libia, No family hx of Stroke Social History Smoker: Non-Smoker Alcohol: Denies ETOH Use Drugs: Denies Drug Use Lives In: Home All Other Systems: Reviewed and Negative (see HPI) Physical Exam General Appearance: No Apparent Distress, Normal HEENT: Normal ENT Inspection, PERRL/EOMI Neck: Full Range of Motion, Non-Tender, Normal, Normal Inspection Respiratory: Chest Non-Tender, Lungs Clear, No Accessory Muscle Use, No Respiratory Distress, Normal Breath Sounds Cardiovascular: No Edema, No JVD, No Murmur, No Gallop, Normal Peripheral Pulses, Regular Rate/Rhythm Breast Exam: Deferred Gastrointestinal: No Organomegaly, Non Tender, No Pulsatile Mass, Normal Bowel Sounds, Soft Genitalia: Deferred Pelvic: Deferred Rectal: Deferred Extremities: No calf tenderness, Normal capillary refill, Normal inspection, Normal range of motion, Non-tender, No pedal edema Neurologic: Alert, disk recordist II-XII nml as Tested, No Motor Deficits, Normal Affect, Normal Mood, No Sensory Deficits Cerebellar Function: Normal Reflexes: Normal Skin: Dry, Normal Color, Warm Peripheral Pulses: 1+ carotid (R), 1+ carotid (L) Lymphatic: No Adenopathy Was a procedure done? Was a procedure done?: No EKG EKG : Pulse Rate (adult): 62 [place]: Normal Cardiac Rhythm: NSR Differential Dx Considerations may include: KELLY, uremia, metabolic encephalopathy. UTI, electrolyte abnormality , kidney stones, X-Ray, Labs, Meds, VS Vital Signs Date Time Temp Pulse Resp B/P (MAP) Pulse Ox O2 Delivery O2 Flow Rate FiO2 07/01/25 19:32 56 18 97 Room Air 07/01/25 19:32 98.2 56 18 138/87 (104) 97 98.2 07/01/25 15:08 62 07/01/25 13:25 62 07/01/25 13:19 97.8 62 18 106/64 96 97.8 Lab Test 07/01/25 14:08 Range/Units White Blood Count 5.4 4.4-10.8 10^3/uL Red Blood Count 4.56 4.0-5.20 10^6/uL Hemoglobin 14.3 12.2-16.2 g/dL Hematocrit 42.2 36.0-46.0 % Mean Corpuscular Volume 92.7 80.0-100.0 fL Mean Corpuscular Hemoglobin 31.3 28.0-32.0 pg Mean Corpuscular Hemoglobin Concent 33.8 32.0-36.0 g/dL Red Cell Distribution Width 13.6 11.8-14.3 % Platelet Count 174 140-450 10^3/uL Mean Platelet Volume 9.3 6.9-10.8 fL Neutrophils (%) (Auto) 39.3 37.0-80.0 % Lymphocytes (%) (Auto) 51.0 H 10.0-50.0 % Monocytes (%) (Auto) 4.5 0.0-12.0 % Eosinophils (%) (Auto) 4.7 0.0-7.0 % Basophils (%) (Auto) 0.5 0.0-2.0 % Neutrophils # (Auto) 2.1 1.6-8.6 10 ^3/uL Lymphocytes # (Auto) 2.7 0.4-5.4 10 ^3/uL Monocytes # (Auto) 0.2 0-1.3 10 ^3/uL Eosinophils # (Auto) 0.3 0-0.8 10 ^3/uL Basophils # (Auto) 0 0-0.2 10 ^3/uL Nucleated Red Blood Cells 0.1 % Sodium Level 143 136-145 mmol/L Potassium Level 3.5 3.5-5.1 mmol/L Chloride Level 108 H 98-107 mmol/L Carbon Dioxide Level 27 20-31 mmol/L Anion Gap 8 5-15 Blood Urea Nitrogen 8 L 9-23 mg/dL Creatinine 1.15 H 0.550-1.02 mg/dL Glomerular Filtration Rate Calc 54 >90 mL/min BUN/Creatinine Ratio 7.0 L 10.0-20.0 Serum Glucose 88 74-106 mg/dL Calcium Level 9.5 8.7-10.4 mg/dL Magnesium Level 2.0 1.6-2.6 mg/dL [facility] [id number] [facility] [id number] Ph: [phone] DIAGNOSTIC IMAGING Diagnostic Imaging Report : [id number] Signed PATIENT: OLGA CAVANAUGH ACCT: [id number] UNIT: [id number] : 1965 LOC: ER ROOM / BED: / AGE / SEX: 60 / F ADM STATUS: REG ER SERVICE 1343 ORDERING PHYSICIAN: SINAN DANGELO MD PROCEDURE(s): KIDUS - KIDNEY REASON: FLANK PAIN ORDER NUMBER(s): [id number], ACCESSION NUMBER(s): [id number] INDICATION: FLANK PAIN TECHNIQUE: Multiple real-time sonographic images of the kidneys and bladder were obtained. COMPARISON: None FINDINGS: RIGHT kidney measures 10.4 cm in length. No hydronephrosis. LEFT kidney measures 9.0 cm in length. 0.3 cm nonobstructing stone in the left kidney. No hydronephrosis. No large intraluminal masses are seen in the bladder. IMPRESSION: No hydronephrosis. Nonobstructing left renal stone. ATED BY: VINNY ISAAC MD DICTATED DATE/TIME: 07/01/251441 SIGNED BY: VINNY ISAAC MD SIGNED DATE/TIME: 07/01/251441 CC: Time of 1ST Reevaluation: 15:00 Reevaluation 1ST: Unchanged Time of 2ND Reevaluation: 19:44 Reevaluation 2ND: Improved Consultation: PCP Patient Education/Counseling: Diagnosis, Treatment, Prognosis, Need For Follow Up Family Education/Counseling: Diagnosis, Treatment, Prognosis, Need For Follow Up, No Family Present SEPSIS Sepsis Screen Date sepsis recognized/suspect: Jul 01, 2025 Time Sepsis recognized/suspect: 1320 Recent Procedure: No On Antibiotic Therapy: No Respiratory Rate >20: No Heart Rate >90: No Temp<36 C (96.8 F) or >38.3 C: No SBP <90 or MAP <65 mmHG: No New Acute Mental Status Change: No Is the patient on CPAP, BIPAP,: No Physician Orders Urinalysis (07/01/25 13:43) Kidney (07/01/25 13:43) Vital Signs Date Time Temp Pulse Resp B/P (MAP) Pulse Ox O2 Delivery O2 Flow Rate FiO2 07/01/25 19:32 56 18 97 Room Air 07/01/25 19:32 98.2 56 18 138/87 (104) 97 98.2 07/01/25 15:08 62 07/01/25 13:25 62 07/01/25 13:19 97.8 62 18 106/64 96 97.8 Laboratory Tests Test 07/01/25 14:08 White Blood Count 5.4 10^3/uL (4.4-10.8) Departure 1 Departure Time of Disposition: 19:44 Impression: Primary Impression: Lupus Additional Impression: CKD (chronic kidney disease) stage 3, GFR 30-59 ml/min Qualified Codes: N18.31 - Chronic kidney disease, stage 3a Disposition: 01 HOME / SELF CARE / HOMELESS Condition: Fair Additional Instructions: Follow up with your PCP Your CKD mild to moderate we will not. You from having surgery Discharged With: Self Critical Care Note Critical Care Time?: No Stability Stability form required: No Heart Score Heart Score: Heart Score Response (Comments) Value History N/A 0 EKG N/A 0 Age 45-64 1 Risk Factors 1 or 2 risk factors 1 Troponin N/A 0 Total 2 I personally scribed for SINAN DANGELO MD ([email or web address]) on 07/01/25 at 15:02. Elect ronically submitted by Elvia Arellano ([email or web address]). I personally scribed for SINAN DANGELO MD ([email or web address]) on 07/01/25 at 15:05. Electronically submitted by Elvia Arellano ([email or web address]). SINAN DANGELO MD Jul 01, 2025 15:02
--- NOTE | 2025-07-01 18:35 | ECG ---
[facility] Test Date: 2025-07-01 Test Time: 13:25:59 Pat Name: OLGA CAVANAUGH Department: ED Room: Gender: F [place] [employer]: ER : 1965 Requested By: SINAN DANGELO Order Number: [id number] Reading MD: Jono Pendleton Measurements Intervals [place] Rate: 62 P: 67 [place]: 131 QRS: -25 QRSD: 112 T: 34 QT: 424 QTc: 431 Interpretive Statements Sinus rhythm Atrial premature complex Borderline intraventricular conduction delay Low voltage, precordial leads RSR' in V1 or V2, right VCD or RVH Baseline wander in lead(s) I,II,aVR,V1,V2 Electronically Signed On 07-07-2025 19:10:07 PDT by Jono Pendleton Please click the below link to view image of tracing.
[2025-07-01 19:32] VITALS: BP 138/87; PULSE 56; RESP 18; TEMP 98.2; O2SAT 97
[2025-07-01 20:16] LABS: Urine Protein, UAD Negative (Negative)
== END 2025-07-01 19:40 | disposition home or self-care (01) ==
LOC: ER 13:17
DX: M32.14 Glomerular disease in systemic lupus erythematosus (principal); N18.31 Chronic kidney disease, stage 3a; E11.22 Type 2 diabetes mellitus with diabetic chronic kidney disease; I45.9 Conduction disorder, unspecified; I48.91 Unspecified atrial fibrillation; Z79.899 Other long term (current) drug therapy; Z90.49 Acquired absence of other specified parts of digestive tract; Z90.710 Acquired absence of both cervix and uterus; Z88.2 Allergy status to sulfonamides; Z88.6 Allergy status to analgesic agent; Z88.8 Allergy status to other drugs, medicaments and biological substances
CPT/HCPCS: 36415; 76775; 80048; 81001; 82947; 83735; 85025; 93005

== ENCOUNTER 2025-09-21 06:07 | Inpatient (IN) | payer MEDICAID ==
[~2025-09-21] VITALS: Ht 175.3 cm; Wt 109.0 kg
[~2025-09-21 06:07] MED LIST changes: -ACET500T58 PO; -COLC1CAP PO; +LACT10SO3 PO; -MONT-8 PO; +OXY20CRT PO; -PROM25TA10 PO; -SUMA50TA2 PO; -ZOFR4T PO
[2025-09-21] MEDS: ceFAZolin 2 GM/D5W50ml 50 ML IV ONE (07:30)
[2025-09-21] MEDS ORDERED: LIDOCAINE 1% INJ PF 5ML AMP ONE (07:54)
[2025-09-21] MEDS ORDERED: KETOROLAC TROMETH 30 MG/ML 1ML VIAL ONE (07:54)
[2025-09-21] MEDS ORDERED: KETAMINE 50mg/ML 1ml syringe ONE (07:54)
[2025-09-21] MEDS ORDERED: ONDANSETRON HCL 4 MG/2 ML VIAL ONE (07:54)
[2025-09-21] MEDS ORDERED: PROPOFOL 10 MG/ML 20 ML IV ONE ×2 (07:54→09:53)
[2025-09-21] MEDS ORDERED: GLYCOPYRROLATE 0.2 MG/ML 1ML VIAL ONE (07:54)
[2025-09-21] MEDS: CELECOXIB 100 MG CAP ONE (08:29)
[2025-09-21] MEDS: BUPIVACAINE 0.25% INJ 50ML VIAL ONE (08:36)
[2025-09-21] MEDS: CEFEPIME 1GM/50ML 50 ML IV ONE (08:36)
[2025-09-21] MEDS: VANCOMYCIN HCL 1000 MG VL ONE (08:39)
[2025-09-21] MEDS: KETOROLAC TROMETH 30 MG/ML 1ML VIAL ONE (08:39)
[2025-09-21] MEDS: ACETAMINOPHEN IV 1000 MG/100ML (10MG/ML) IV ONE (08:45)
[2025-09-21] MEDS: CELECOXIB 100 MG CAP PO ONE (08:45)
[2025-09-21] MEDS: GABAPENTIN 300 MG CAP PO ONE (08:45)
[2025-09-21] MEDS: TRANEXAMIC ACID 20 ML ONE (08:46)
[2025-09-21] MEDS ORDERED: BUPIVACAINE/DEXTROSE MPF 0.75% 2 ML AMP IT ONE (08:46)
[2025-09-21] MEDS ORDERED: HYDROcodone-ACET 10/325MG TAB PO PRN (09:30)
[2025-09-21] MEDS ORDERED: MORPHINE SULFATE INJ 2 MG/ml SYRG IV PRN (09:30)
[2025-09-21] MEDS ORDERED: NITROGLYCERIN 0.4 MG SL TAB SL PRN (09:30)
[2025-09-21] MEDS ORDERED: HYDROcodone-ACET 5/325MG TAB PO PRN (09:30)
[2025-09-21] MEDS ORDERED: ceFAZolin 1GM/50ML 50 ML IV SCH (09:30)
--- NOTE | 2025-09-21 10:01 | DVHOP2 ---
Discharge Orders Discharge Orders DISCHARGE WHEN CRITERIA MET DISCHARGE WHEN CRITERIA MET. 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 Patient has agreed to proceed with the procedure. I have reviewed all pre-operative assessments including Labs, EKGs, and radiographic images that has been performed. Patient is an appropriate candidate for the outpatient surgical center procedure. With incentive discussion in the preoperative holding in the office regarding operative and nonoperative indications and a patellofemoral replacement. The patient complained of anterior knee pain from a sitting to a standing position. The patient complained of no joint line pain the patient understood that I may have patellofemoral vein would not address her medial and lateral joint line pain and any changes in the cartilage the patient understood the risks and benefits of surgical and nonsurgical treatment the patient opted for surgical treatment of the left lower extremity she understood the risks associated with a patellofemoral replacement with the patient operative for patellofemoral replacement anastomotic seen in the preoperative area in the left lower extremity was marked the patient's acetabular so general anesthesia was then this time was allowed hospital protocol the left lower extremity centered hepatitis and/or fashion Ancef was given for infection prophylaxis TXA was given for bleeding prophylaxis the left lower extremity was then prepped and draped incision was made the skin surface incision of the VMO quad junction once that was then completed a small medial parapatellar arthrotomy was then created exposed the patellofemoral joint was then done the patella endarterectomy was then completed with a without osteophytes were removed off the patella once that as the operative corrected with a patella in the osteophytes carefully remove the patella endarterectomy was then completed once that was then completed the medullary guide was then placed in the the anterior cut once I was then called to ensure there was no notching of the anterior cut was then completed the appropriate manner once that was then completed in the appropriate manner attention was then turned to the Sizer a size one patellofemoral replacement of the knee seemed appropriate was then was then done the reaming was then done followed by a the paulinag drills followed by the Reamer in the appropriate manner on ce I was then completed the trough up with the keel and punch was then done with a size one was then done then wounds irrigated was saline followed by the size one implant of the size and then the wounds and secured to the cut was then incised in the arthrotomy was then closed with 0 Vicryl almost artifacts 0 Vicryl 2-0 Vicryl jacqueline and negative pressure wound VAC the patient will be weight-bearing swollen left lower extremity the patient was educated multiple times that of the intraoperative findings would be ignored as long as there was no focal cartilage defects there was a grade 3 lesion of the medial femoral condyle however the rest of the knee was appropriate there was osteophytes around the anterior cruciate ligament notch as well that were nonweightbearing in nature. RAIMUNDO CHARLES MD Sep 21, 2025 10:01
[2025-09-21 10:42] VITALS: PULSE 59; RESP 20; O2SAT 100
[2025-09-21 10:52] VITALS: PULSE 56; RESP 16; O2SAT 100
[2025-09-21] MEDS ORDERED: NALOXONE HCL 0.4 MG/ML VIAL IV PRN (11:00)
[2025-09-21] MEDS ORDERED: FLUMAZENIL 0.1 MG/ML INJ 10ML MDV IV PRN (11:00)
[2025-09-21] MEDS ORDERED: hydrALAZINE HCL 20 MG/ML VL IV PRN (11:00)
[2025-09-21] MEDS: ONDANSETRON HCL 4 MG/2 ML VIAL ONE (11:01)
[2025-09-21] MEDS: ONDANSETRON HCL 4 MG/2 ML VIAL IV PRN ×2 (11:04→20:42)
[2025-09-21] MEDS: HYDROmorphone HCL 2 MG/ML VL/or syr IV PRN (11:04)
[2025-09-21] MEDS: PANTOPRAZOLE 40 MG/10 ML VIAL INJ IV ONE ×2 (11:23→11:31)
[2025-09-21] MEDS: HYDROmorphone HCL 2 MG/ML VL/or syr ONE (11:28)
[2025-09-21] MEDS: fentaNYL CITRATE 100 MCG/2 ML VL IV PRN (11:28)
--- NOTE | 2025-09-21 12:42 | DVH ---
Indication: SHARP LLQ ABD PAIN Technique: CT axial images of the abdomen and pelvis are obtained without contrast. Coronal and sagittal reformats were obtained. Radiation Dose Information: CTDI volume is 26.15 mGy. Dose-length product is 1516.71 mGy*cm Comparison: CT ABD PELVIS WO CONTRAST on DOS: 05/31/22 FINDINGS: There is limited interpretation of the abdomen and pelvis without administration of intravenous contrast. Lung bases demonstrate atelectasis. Tiny bilateral pleural effusions. Adrenal glands, spleen, pancreas unremarkable in shape. Liver unremarkable in shape. Cholecystectomy. The right kidney demonstrates [id number] right hydroureteronephrosis with right perinephric stranding. The left kidney demonstrates mild left hydroureteronephrosis with less pronounced perinephric stranding. Stomach is partially distended. Small bowel loops normal in caliber. Moderate volume stool in the colon. Normal appendix. Bladder is distended. No free pelvic fluid. No inguinal lymphadenopathy. [id number] bilateral sacroiliac degenerative joint disease. [id number] thoracolumbar degenerative disc disease most pronounced at L5- S1. Sqrz-ar-herrjkbo lumbar facet hypertrophic changes. Cholecystectomy. IMPRESSION: Limited evaluation without contrast. [id number]-[id number] right and mild left hydroureteronephrosis. There is associated perinephric, periureteral stranding. No obstructing calculus identified. Correlate for urinary tract infection, pyelonephritis. Bladder distention Bibasilar atelectasis and tiny bilateral pleural effusions.
[2025-09-21] MEDS: METOCLOPRAMIDE HCL 5MG/ml INJ 2ml VIAL IV ONE (13:06)
[2025-09-21] MEDS: METOCLOPRAMIDE HCL 5MG/ml INJ 2ml VIAL ONE (13:30)
--- NOTE | 2025-09-21 13:43 | DVHHP2 ---
History of Present Illness Reason for Visit: Abdominal pain History of Present Illness 60-year-old female who was here for elective left knee replacement Postoperatively she started complaining of abdominal pain and therefore I was called for the consultation and for medical management Past medical history: Hypertension, dyslipidemia, type 2 diabetes, atrial fibrillation, lupus, DVT Past surgical history: Hysterectomy, cholecystectomy, left knee replacement today Review of Systems Gastrointestinal: Abdominal Pain Allergies: Coded Allergies: Iodine (Verified Allergy, Unknown, 04/17/24) Sulfa Antibiotics (Verified Allergy, Unknown, 04/17/24) Uncoded Allergies: ASA (Allergy, Unknown, 07/01/25) Medications Current Medications Medications Dose Ordered Sig/Anastasia Route Start Time Stop Time Status Last Admin Dose Admin Sodium Chloride 10 ml Q8HR IV 09/21/25 14:00 Acetaminophen 650 mg Q4HP PRN PO 09/21/25 09:30 Enoxaparin Sodium 40 mg DAILY SC 09/21/25 10:00 Nitroglycerin 0.4 mg Q5MINP PRN SL 09/21/25 09:30 Morphine Sulfate 2 mg Q30M PRN IV 09/21/25 09:30 Hydromorphone HCl 1 mg Q3HPRN PRN IV 09/21/25 09:30 Oxycodone HCl 10 mg ONCE PRN PO 09/21/25 11:00 Ondansetron HCl 4 mg Q4HPRN PRN IV 09/21/25 12:15 Cefazolin Sodium 50 ml @ 50 mls/hr Q8H IV 09/21/25 16:30 09/22/25 09:29 Exam Vital Signs Vital Signs Date Time Temp Pulse Resp B/P (MAP) Pulse Ox O2 Delivery O2 Flow Rate FiO2 09/21/25 11:48 58 17 141/71 09/21/25 07:45 97.9 97 97.9 General Appearance: Alert, Oriented X3, Cooperative, moderate distress Respiratory: Clear to auscultation, Normal air movement Cardiovascular: Regular rate, Normal S1, Normal S2, No murmurs Abdominal: Normal bowel sounds, Soft, Other (Periumbilical and hypogastric tenderness) SEPSIS Sepsis Screen Physician Orders Admit (09/21/25 09:24) Patient Condition (09/21/25 09:24) Regular Diet (09/21/25 Lunch) Sodium Chloride Lock (Saline Lock Ns) (09/21/25 14:00) Acetaminophen Tablet (Tylenol Tablet) (09/21/25 09:30) Pt Request For Service (09/22/25 08:00) Sequential Compression Device (09/21/25 09:24) CPM (09/21/25 09:24) Call/Page Hospitalist/Atten Fo (09/21/25 09:24) Enoxaparin Sodium (Lovenox) (09/21/25 10:00) Nitroglycerin Sublingual (Ntrostat Subli (09/21/25 09:30) Morphine Sulfate Injection (09/21/25 09:30) Stat Ekg For Chest Pain (09/21/25 09:24) Notify Md Of Changes From Base (09/21/25 09:24) Patient Financial Rep For 24 Hours (09/21/25 09:24) Emergency Dysrhythmia Protocol (09/21/25 09:24) Rhythm Strips Once Every Shift (09/21/25 09:24) Oxygen By Nasal Cannula (09/21/25 09:24) Hydromorphone Injection (Dilaudid Inject (09/21/25 09:30) * Hospitalist Consult (09/21/25 ) Dental Equipment Mechanic (09/21/25 10:48) Notify Anesth. For Changes: (09/21/25 10:48) Pulse Ox Assessment (09/21/25 10:48) Bear Hugger For Temp <94.5f (09/21/25 10:48) May Have Head Of Bed Up (09/21/25 10:48) Follow Iv With Surgeon Orders (09/21/25 10:48) Discharge To Room Per Criteria (09/21/25 10:48) Oxycodone Immediate Rel Tablet (09/21/25 11:00) Ct Ab Pel Wo Con-No Oral Or Iv (09/21/25 11:45) Insert/Manage Urinary Catheter QSHIFT (09/21/25 12:06) Transfer Orders (09/21/25 12:08) Complete Blood Count (09/21/25 12:08) Comprehensive Metabolic Panel (09/21/25 12:08) Magnesium (09/21/25 12:08) Urinalysis (09/21/25 12:08) Ondansetron Hcl (Zofran) (09/21/25 12:15) Insert Yi Catheter QSHIFT (09/21/25 12:08) Cefazolin 1gm/50ml (Ancef) (09/21/25 16:30) Vital Signs Date Time Temp Pulse Resp B/P (MAP) Pulse Ox O2 Delivery O2 Flow Rate FiO2 09/21/25 11:48 58 17 141/71 09/21/25 11:28 144/75 09/21/25 11:16 64 22 140/86 09/21/25 11:04 66 13 126/64 09/21/25 07:45 97.9 56 18 123/76 (92) 97 97.9 Medications Medications Dose Ordered Sig/Anastasia Route Start Time Stop Time Status Last Admin Dose Admin Acetaminophen 1,000 mg ONCE ONCE IV 09/21/25 08:15 09/21/25 08:21 DC 09/21/25 08:45 1,000 MG Celecoxib 200 mg ONCE ONCE PO 09/21/25 08:15 09/21/25 09:41 DC 09/21/25 08:45 200 MG Fentanyl Citrate 25 mcg Q1HP PRN IV 09/21/25 11:00 09/21/25 11:01 DC 09/21/25 11:28 25 MCG Gabapentin 300 mg ONCE ONCE PO 09/21/25 08:15 09/21/25 08:21 DC 09/21/25 08:45 300 MG Hydromorphone HCl 0.5 mg Q10M PRN IV 09/21/25 11:00 09/21/25 11:41 DC 09/21/25 11:48 0.5 MG Metoclopramide HCl 10 mg ONCE ONCE IV 09/21/25 13:15 09/21/25 13:16 DC 09/21/25 13:06 10 MG Ondansetron HCl 4 mg ONCE PRN IV 09/21/25 11:00 09/21/25 11:01 DC 09/21/25 11:04 4 MG Pantoprazole Sodium 40 mg ONCE ONCE IV 09/21/25 11:23 09/21/25 11:29 DC 09/21/25 11:31 40 MG Assessment/Plan Assessment/Plan Abdominal pain Status post left knee replacement Hypertension Mixed hyperlipidemia Type 2 diabetes Atrial fibrillation Lupus History of DVT Plan CT scan of the abdomen and pelvis showed moderate right and mild left hy droureteronephrosis, no stones, bladder distention, bibasilar atelectasis Insert Yi catheter Check urinalysis Pain management p.r.n. with Dilaudid Lovenox 40 mg daily Zofran p.r.n. Monitor closely on telemetry Plan discussed with: Patient My Orders Orders - SYLVIE IBARRA MD Procedure Category Date Status Time Insert/Manage Urinary DIANA 09/21/25 In Process Catheter 12:06 Transfer Orders XFER 09/21/25 Transmitted 12:08 Complete Blood Count LAB 09/21/25 Logged 12:08 Comprehensive LAB 09/21/25 Logged Metabolic Panel 12:08 Magnesium LAB 09/21/25 Logged 12:08 Urinalysis LAB 09/21/25 Logged 12:08 Ondansetron Hcl PHA 09/21/25 In Process (Zofran) 12:15 Insert Yi Catheter DIANA 09/21/25 In Process 12:08 Date of Service: Sep 21, 2025 Billing Provider: SYLVIE IBARRA MD Common Visit Codes: [id number] INP/OBS CARE(HIGH) SYLVIE IBARRA MD Sep 21, 2025 13:43
[2025-09-21] MEDS: SODIUM CHLOR 0.9% PF (SALINE LOCK) 10ML VIAL/SYR IV SCH (14:00)
[2025-09-21 14:05] VITALS: BP 138/85; PULSE 68; RESP 16; TEMP 98.1; O2SAT 97
[2025-09-21 14:26] LABS: Urine Protein, UAD Negative (Negative)
[2025-09-21 16:10] LABS: Hematocrit 39.7 % (36.0-46.0); Hemoglobin 13.3 g/dL (12.2-16.2); Mean Corpuscular Hemoglobin 30.9 pg (28.0-32.0); Mean Corpuscular Volume 92.5 fL (80.0-100.0); Nucleated Red Blood Cells % 0.1 %
[2025-09-21 16:14] LABS: Albumin 4.0 g/dL (3.2-4.8); Alkaline Phosphatase 85 U/L (46-116); Anion Gap 10 (5-15); BUN/Creatinine Ratio 11.5 (10.0-20.0); Blood Urea Nitrogen 11 mg/dL (9-23); Calcium 9.3 mg/dL (8.7-10.4); Carbon Dioxide 26 mmol/L (20-31); Chloride 107 mmol/L (98-107); Magnesium 1.8 mg/dL (1.6-2.6); Sodium 143 mmol/L (136-145); Total Protein 7.5 g/dL (5.7-8.2)
[2025-09-21 16:16] LABS: Bilirubin, Total 0.6 mg/dL (0.2-1.0)
[2025-09-21 16:23] LABS: Alanine Aminotransferase 187 U/L (7-40); Glucose 161 mg/dL (74-106); Potassium 3.4 mmol/L (3.5-5.1)
[2025-09-21] MEDS: ENOXAPARIN SOD 40 MG/0.4 ML SYRINGE SC SCH (16:23)
[2025-09-21] MEDS: ceFAZolin 1GM/50ML 50 ML IV SCH (16:24)
[2025-09-21 16:51] LABS: Hepatitis B Surface Antigen Negative (Negative)
[2025-09-21 16:56] LABS: Hepatitis C Antibody Negative (Negative)
[2025-09-21 17:00] VITALS: BP 122/76; PULSE 57; RESP 16; TEMP 97.5; O2SAT 95
[2025-09-21 20:00] VITALS: PULSE 51; PULSE 55; RESP 18; O2SAT 100
[2025-09-21 21:00] VITALS: BP 134/95; PULSE 49; RESP 19; TEMP 97.8; O2SAT 100
[2025-09-22] VITALS (8 sets, daily range): BP systolic 94–114; BP diastolic 55–75; PULSE 58–74; RESP 16–19; TEMP 97.4–99.1; O2SAT 95–100
[2025-09-22] MEDS: HYDROmorphone HCL 2 MG/ML VL/or syr IV PRN (11:48)
--- NOTE | 2025-09-22 17:33 | DVHPN2 ---
Subjective in bed resting Reviewed: H&P Changes from previous H/P or p: No Changes Gastrointestinal: Abdominal Pain Objective Vitals Vital Signs Date Time Temp Pulse Resp B/P (MAP) Pulse Ox O2 Delivery O2 Flow Rate FiO2 09/22/25 13:00 97.4 74 19 94/55 (68) 98 97.4 09/22/25 08:00 Nasal Cannula* 2 28 Intake/Output Intake and Output 09/22/25 05:00 Intake Total 1050 ml Output Total 500 ml Balance 550 ml Intake Oral 800 ml IV Total 250 ml Output Urine Total 500 ml General Appearance: Alert, Oriented X3 HEENT: Atraumatic Lungs: Clear to auscultation Cardiovascular: Regular rate, Normal S1, Normal S2 Abdomen: Normal bowel sounds Medications Current Medications Medications Dose Ordered Sig/Anastasia Route Start Time Stop Time Status Last Admin Dose Admin Sodium Chloride 10 ml Q8HR IV 09/21/25 14:00 09/22/25 14:00 10 ML Acetaminophen 650 mg Q4HP PRN PO 09/21/25 09:30 Enoxaparin Sodium 40 mg DAILY SC 09/21/25 10:00 09/22/25 10:21 40 MG Nitroglycerin 0.4 mg Q5MINP PRN SL 09/21/25 09:30 Morphine Sulfate 2 mg Q30M PRN IV 09/21/25 09:30 Hydromorphone HCl 1 mg Q3HPRN PRN IV 09/21/25 09:30 09/22/25 11:48 1 MG Oxycodone HCl 10 mg ONCE PRN PO 09/21/25 11:00 Ondansetron HCl 4 mg Q4HPRN PRN IV 09/21/25 12:15 09/21/25 20:42 4 MG Laboratory Results Laboratory Tests 09/21/25 15:19 Urinalysis Test 09/21/25 12:30 Urine Color Colorless (Yellow) Urine Clarity Clear (Clear) Urine pH 6.0 (5.0-9.0) Urine Specific [place] 1.009 (1.001-1.035) Urine Protein Negative (Negative) Urine Ketones Negative (Negative) Urine Blood Negative /uL (Negative) Urine Nitrite Negative (Negative) Urine Bilirubin Negative (Negative) Urine Urobilinogen Normal mg/dL (Negative) Urine Leukocyte Esterase Negative /uL (Negative) Urine RBC 1 /hpf (0 - 4) Urine Microscopic WBC < 1 /HPF (0-5) Urine Squamous Epithelial Cells Few /hpf (<5) Urine Bacteria None seen /hpf (None Seen) Urine Glucose Normal mg/dL (Normal) Assessment/Plan Assessment/Plan Abdominal pain Status post left knee replacement Hypertension Mixed hyperlipidemia Type 2 diabetes Atrial fibrillation Lupus History of DVT Plan CT scan of the abdomen and pelvis showed moderate right and mild left hydroureteronephrosis, no stones, bladder distention, bibasilar atelectasis Insert Yi catheter Check urinalysis Pain management p.r.n. with Dilaudid Lovenox 40 mg daily Zofran p.r.n. Monitor closely on telemetry Plan discussed with: Patient Date of Service: Sep 22, 2025 Billing Provider: SLY CASAS MD Common Visit Codes: [id number] INP/OBS CARE(HIGH) SLY CASAS MD Sep 22, 2025 17:33
--- NOTE | 2025-09-22 20:15 | DVHPN2 ---
Progress Note Progress Note Surgery: Left patellofemoral replacement DOS: 09/21/2025 S: Reports pain currently 2-310. Reports no acute events over night. Denies numbness/tingling. Denies CP/SOB/palpitations. Denies F/C O: Pt resting comfortably in bed. Examination of the Left knee reveals surgical dressing CDI. Pt is able to dorsiflex and plantar flex toes and ankle (Gastroc, ant tib, peroneals). SILT over the sural, saphenous, tibial, deep and superficial peroneal nerve, medial and lateral plantar nerve distribution patterns. 2+ DP, BCR, euthermic A/P: S/p left Left patellofemoral replacement. The patient is doing well. Discussed with patient the importance of keeping knee straight when lying in bed and when not doing active knee flexion exercises. - Pt should continue to work with physical therapy for mobilization. - CMP during inpatient stay -Ambulation: WBAT LLE with use of FWW for balance and assistance. -DVT proph: Antwon, FRANK, CHIN simon per hospitalist protocol -Antibiotics: Abx completed today -Pain Management: per hospitalist The patient will be ready to be discharged once pain is controlled and cleared by PT Plan discussed with: Patient Visit Coding Surgery Date of Service if different f: Sep 22, 2025 Billing Provider: LAKHWINDER ACEVES Surgery Visit Codes: [id number] - INP CONSULT <55 MIN LAKHWINDER ACEVES Sep 22, 2025 20:14
[2025-09-23] VITALS (8 sets, daily range): BP systolic 102–126; BP diastolic 63–78; PULSE 65–90; RESP 16–18; TEMP 97.2–99; O2SAT 93–100
--- NOTE | 2025-09-23 07:19 | ECG ---
[facility] Test Date: 2025-09-21 Test Time: 11:40:02 Pat Name: OLGA CAVANAUGH Department: Room: [facility]0T A Gender: F Associate Professor: JOHANNE : 1965 Requested By: RADHA BANERJEE Order Number: [id number] Reading MD: Jono Pendleton Measurements Intervals [place] Rate: 56 P: 56 [place]: 160 QRS: -17 QRSD: 112 T: 19 QT: 476 QTc: 459 Interpretive Statements Sinus bradycardia Possible Left atrial enlargement Low voltage QRS Incomplete right bundle branch block Electronically Signed On 09-24-2025 10:53:16 PST by Jono Pendleton Please click the below link to view image of tracing.
--- NOTE | 2025-09-23 07:50 | DVHDS2 ---
Discharge Summary Date of Admission Sep 21, 2025 at 09:24 Date of Discharge: Sep 23, 2025 Wounds: 1. You will likely have a gel-type dressing over your wound, you may keep this on for 7-14 days after leaving the hospital until your first post-op visit, unless it becomes soiled or your skin becomes irritated. If a wound vac dressing is placed on your knee this is to be left in place for one week and will be changed as needed. After your remove the dressing or wound vac, the home health nurse may place clean dry dressing over your wound. Keep wound covered, clean and dry for two weeks. 2. Noel will be removed during your initial post-op visit. If you have concerns about our wound, please call the office immediately. If nervous about staple removal can take pain pill one hour prior to appointment. 3. If there is drainage from your wound, change the dressing daily until it stops. If drainage lasts more than 10 days, call our office. 4. Low grade (up to 100 degrees) fever is common for the first week after surgery. You should take your temperature daily. If you have fevers of 101 or more, please call the office. Labs/Diagnostic Data: Laboratory Results Test 09/21/25 15:19 09/21/25 12:30 White Blood Count 9.5 10^3/uL (4.4-10.8) Red Blood Count 4.30 10^6/uL (4.0-5.20) Hemoglobin 13.3 g/dL (12.2-16.2) Hematocrit 39.7 % (36.0-46.0) Mean Corpuscular Volume 92.5 fL (80.0-100.0) Mean Corpuscular Hemoglobin 30.9 pg (28.0-32.0) Mean Corpuscular Hemoglobin Concent 33.4 g/dL (32.0-36.0) Red Cell Distribution Width 13.3 % (11.8-14.3) Platelet Count 162 10^3/uL (140-450) Mean Platelet Volume 9.6 fL (6.9-10.8) Neutrophils (%) (Auto) 91.8 % (37.0-80.0) Lymphocytes (%) (Auto) 6.5 % (10.0-50.0) Monocytes (%) (Auto) 1.5 % (0.0-12.0) Eosinophils (%) (Auto) 0.1 % (0.0-7.0) Basophils (%) (Auto) 0.1 % (0.0-2.0) Neutrophils # (Auto) 8.8 10 ^3/uL (1.6-8.6) Lymphocytes # (Auto) 0.6 10 ^3/uL (0.4-5.4) Monocytes # (Auto) 0.1 10 ^3/uL (0-1.3) Eosinophils # (Auto) 0 10 ^3/uL (0-0.8) Basophils # (Auto) 0 10 ^3/uL (0-0.2) Nucleated Red Blood Cells 0.1 % Sodium Level 143 mmol/L (136-145) Potassium Level 3.4 mmol/L (3.5-5.1) Chloride Level 107 mmol/L (98-107) Carbon Dioxide Level 26 mmol/L (20-31) Anion Gap 10 (5-15) Blood Urea Nitrogen 11 mg/dL (9-23) Creatinine 0.96 mg/dL (0.550-1.02) Glomerular Filtration Rate Calc 67 mL/min (>90) BUN/Creatinine Ratio 11.5 (10.0-20.0) Serum Glucose 161 mg/dL (74-106) Calcium Level 9.3 mg/dL (8.7-10.4) Magnesium Level 1.8 mg/dL (1.6-2.6) Total Bilirubin 0.6 mg/dL (0.2-1.0) Aspartate Amino Transferase (AST) 264 U/L (13-40) Alanine Aminotransferase (ALT) 187 U/L (7-40) Alkaline Phosphatase 85 U/L (46-116) Total Protein 7.5 g/dL (5.7-8.2) Albumin 4.0 g/dL (3.2-4.8) Hepatitis B Surface Antigen Negative (Negative) Hepatitis C Antibody Negative (Negative) Urine Color Colorless (Yellow) Urine Clarity Clear (Clear) Urine pH 6.0 (5.0-9.0) Urine Specific [place] 1.009 (1.001-1.035) Urine Protein Negative (Negative) Urine Ketones Negative (Negative) Urine Blood Negative /uL (Negative) Urine Nitrite Negative (Negative) Urine Bilirubin Negative (Negative) Urine Urobilinogen Normal mg/dL (Negative) Urine Leukocyte Esterase Negative /uL (Negative) Urine RBC 1 /hpf (0 - 4) Urine Microscopic WBC < 1 /HPF (0-5) Urine Squamous Epithelial Cells Few /hpf (<5) Urine Bacteria None seen /hpf (None Seen) Urine Glucose Normal mg/dL (Normal) Other Laboratory Tests 09/21/25 15:19 Brief Hx & Hospital Course: s/p left PF replacement Condition at Discharge: Good Final Diagnosis/Problems List patella femoral chondromalacia left knee Discharge Disposition: Home with Health Services Discharge Instruct/Medications Diet: Regular Diet comment: may advance diet as tolerated, drink plenty of fluids and avoid alcohol while taking narcotics. Activity: See Comment Activity comment: 1.CPM as ordered, goal is for 6 hours every day for the first 21 days of your recovery. Can break it up in to increments of 2-3 hours at a time. Most hospitals will start at 45 degrees of flexion, and increase by 5 degrees daily until the machine has been maxed out. The goal is to be at 90 degrees by first postop visit in 2 weeks. 2.No pool, jacuzzi, beach, junior or bath for 6 weeks. Once all scabbing has fallen off patient can begin soaking and submerging knee under water for 15-minute periods at a time. 3.Physical therapy is critical in the first 2 weeks. If having issues with scheduling please inform office. 4.No running or jumping for 6 weeks. 5.Can walk and bear as much weight on the surgical leg as tolerated. No restrictions in regards to walking or standing. Follow Up/Referral: 1.Driving is not permitted within the first 2 weeks. 2.Your first postoperative visit will take place 2 weeks after discharge. Please call the office once you are home from the hospital to arrange this appointment. 3.Antibiotic preventative treatment is required before dental or other invasive procedures. Please ask your surgeon about this at your first postoperative visit. If you experience chest pain, shortness of breath or severe painful calf swelling, go to the nearest emergency room to be evaluated. Please call our office once your situation is stabilized. Medications: 1.You will be discharged with pain medication, a blood thinner (unless you were previously on a blood thinner prior to surgery) and stool softener. Please follow the instructions regarding these medications as provided by your nurse at the hospital upon discharge. 2.Blood clots in the leg are a known complication of surgery. It is very important that you take the medication to protect against clots. Depending on what you are discharged on typically it is Lovenox 40mg daily for 2 weeks or Aspirin 81mg twice daily for 4 weeks. After you finish this, you should then take baby Aspirin (81mg) once daily for 2 weeks. 3.You should restart all of your prescription medications once discharged from the hospital/surgery center unless specifically instructed otherwise. 4.Herbal supplements may be restarted 2 weeks after surgery. 5.If you have been given Coumadin as a blood thinner, please follow up with your airdrop systems technician during the first two weeks after surgery to review medications and overall medical well-being. 6.Please note that narcotic pain medication may cause constipation. Please remember to take stool softeners (Colace) when using narcotics to help reduce the change of constipation. You should not use alcohol together with narcotic medication. Scheduled Furosemide (Furosemide), 1 TAB PO DAILY, (Reported) Lactulose (Lactulose), 10 GM PO PRN, (Reported) Rivaroxaban (Xarelto Tablet), 1 TAB PO DAILY, (Reported) Miscellaneous Medications Oxycodone Hcl (OxyCONTIN ER Tablet), 30 MG PO, (Reported) Discharge Statement: "Patient was advised to return to the ER or call 911 if any headaches, dizziness, shortness of breath, chest pain, abdominal pain, bleeding, fevers, or worsening of medical condition. Patient was counseled about treatment plan, medications, possible side effects, patientverbalized understanding. All questions were answered to the best of my ability. This discharge took greater then 30 minutes in planning, reviewing documentation, counseling the patient, and discussing with other team members." ASSESSMENT ASSESSMENT Assessment ABAD FOSTER NP Sep 23, 2025 07:50
[2025-09-23] MEDS: ACETAMINOPHEN 325 MG TAB PO PRN (12:18)
--- NOTE | 2025-09-23 13:16 | DVHPN2 ---
Subjective in bed resting Having severe pain on left knee Reviewed: H&P Changes from previous H/P or p: No Changes Gastrointestinal: Abdominal Pain Objective Vitals Vital Signs Date Time Temp Pulse Resp B/P (MAP) Pulse Ox O2 Delivery O2 Flow Rate FiO2 09/23/25 09:03 78 18 113/76 09/23/25 09:00 97.2 99 97.2 09/23/25 08:00 Room Air* 0 21 Intake/Output Intake and Output 09/23/25 07:00 Intake Total 1200 ml Output Total 500 ml Balance 700 ml Intake Oral 1200 ml Output Urine Total 500 ml General Appearance: Alert, Oriented X3 HEENT: Atraumatic Lungs: Clear to auscultation Cardiovascular: Regular rate, Normal S1, Normal S2 Abdomen: Normal bowel sounds Medications Current Medications Medications Dose Ordered Sig/Anastasia Route Start Time Stop Time Status Last Admin Dose Admin Sodium Chloride 10 ml Q8HR IV 09/21/25 14:00 09/23/25 06:31 10 ML Acetaminophen 650 mg Q4HP PRN PO 09/21/25 09:30 09/23/25 12:18 650 MG Enoxaparin Sodium 40 mg DAILY SC 09/21/25 10:00 09/23/25 09:53 40 MG Nitroglycerin 0.4 mg Q5MINP PRN SL 09/21/25 09:30 Morphine Sulfate 2 mg Q30M PRN IV 09/21/25 09:30 Hydromorphone HCl 1 mg Q3HPRN PRN IV 09/21/25 09:30 09/23/25 08:33 1 MG Oxycodone HCl 10 mg ONCE PRN PO 09/21/25 11:00 09/23/25 09:53 10 MG Ondansetron HCl 4 mg Q4HPRN PRN IV 09/21/25 12:15 09/21/25 20:42 4 MG Oxycodone HCl 10 mg Q4HP PRN PO 09/23/25 10:00 Laboratory Results Laboratory Tests 09/21/25 15:19 Urinalysis Test 09/21/25 12:30 Urine Color Colorless (Yellow) Urine Clarity Clear (Clear) Urine pH 6.0 (5.0-9.0) Urine Specific [place] 1.009 (1.001-1.035) Urine Protein Negative (Negative) Urine Ketones Negative (Negative) Urine Blood Negative /uL (Negative) Urine Nitrite Negative (Negative) Urine Bilirubin Negative (Negative) Urine Urobilinogen Normal mg/dL (Negative) Urine Leukocyte Esterase Negative /uL (Negative) Urine RBC 1 /hpf (0 - 4) Urine Microscopic WBC < 1 /HPF (0-5) Urine Squamous Epithelial Cells Few /hpf (<5) Urine Bacteria None seen /hpf (None Seen) Urine Glucose Normal mg/dL (Normal) Assessment/Plan Assessment/Plan Abdominal pain Status post left knee replacement Hypertension Mixed hyperlipidemia Type 2 diabetes Atrial fibrillation Lupus History of DVT Plan Pain control with norco IV dilaudid Plan discussed with: Patient My Orders Orders - SLY CASAS MD Procedure Category Date Status Time Oxycodone Immediate PHA 09/23/25 In Process Rel Tablet 10:00 Date of Service: Sep 23, 2025 Billing Provider: SLY CASAS MD Common Visit Codes: [id number] INP/OBS CARE(HIGH) SLY CASAS MD Sep 23, 2025 13:16
[2025-09-24] VITALS (8 sets, daily range): BP systolic 110–119; BP diastolic 69–77; PULSE 76–102; RESP 17–18; TEMP 37.2; O2SAT 90–96
== END 2025-09-24 16:45 | disposition home health service (06) | DRG 326 ==
LOC: SUR 06:07 → OVERFLOW 09:24 → WEST WING 13:24 → TELE-WESTW 09-22 12:13
PROVIDERS: ADMIT Hospitalist; ATTEND Hospitalist
PROC: 0SRD0NZ Replacement of Left Knee Joint with Patellofemoral Synthetic Substitute, Open Approach (ICD-10-PCS; principal; 2025-09-21 08:51)
DX: M17.12 Unilateral primary osteoarthritis, left knee (principal); E11.9 Type 2 diabetes mellitus without complications; I10 Essential (primary) hypertension; M94.262 Chondromalacia, left knee; E78.2 Mixed hyperlipidemia; I48.91 Unspecified atrial fibrillation; N13.30 Unspecified hydronephrosis; Z86.718 Personal history of other venous thrombosis and embolism; Z90.710 Acquired absence of both cervix and uterus; Z90.49 Acquired absence of other specified parts of digestive tract; Z88.2 Allergy status to sulfonamides; Z91.041 Radiographic dye allergy status
CPT/HCPCS: 36415; 74176; 80053; 81001; 83735; 85025; 86803; 86850; 86900; 86901; 87340; 93005; 97110; 97116; 97163; G0378; J0131; J1100; J1885; J2405; J2470; J2704; J3490